=== PATIENT | male | born 1995 | race Caucasian/White ===

== ENCOUNTER 2019-03-06 06:47 | Emergency (ER) | payer OTHER ==
[~2019-03-06] VITALS: Ht 167.6 cm; Wt 59.0 kg
--- OUTSIDE RECORDS SUMMARY | ~2019-03-06 | XMS | Encounter Summary ---
Demographics + + + | Address | [address] | | | [place] [address] | + + + | Home Phone | | + + + | Preferred Language | Unknown | + + + | Marital Status | Single | + + + | Christian Affiliation | CHR | + + + | Race | White | + + + | Ethnic Group | Not or | + + + Author + + + | Author | [facility] | + + + | Organization | [facility] | + + + | Address | Unknown | + + + | Phone | Unavailable | + + + Support + + + + + | Name | Relationship | Address | Phone | + + + + + | Gilbert Falcon | ANGELES | [address] | | | | | [place] | | | | | [address] | | + + + + + | Tommy Falcon | ECON | [address] | | | | | [place] | | | | | [address] | | + + + + + Care Team Providers + +------+ + | Care Sales Floor Team Leader Name | Role | Phone | + +------+ + | Jarret Griffith DO | PCP | | + +------+ + Encounter Details +--------+---------+ + + + | Date | Type | Department | Care Team | Description | +--------+---------+ + + + | 02/18/ | Office | [facility] | Bryan Link MD [address] | Acquired absence of | | 2014 | Visit | [place] | [address] | organ, eye (Primary | | | | Oculoplastics at | [place], [place] | Dx) | | | | [facility] | [address] | | | | | [address] | [phone] | | | | | Mailcode: [facility] | | | | | | [place], [place] | | | | | | [address] | | | | | | [phone] | | | +--------+---------+ + + + Social History + +-------+ +--------+------+ | Tobacco Use | Types | Packs/Day | Years | Date | | | | | Used | | + +-------+ +--------+------+ | Never Smoker | | | | | + +-------+ +--------+------+ + + +---------+ + | Alcohol Use | Drinks/Week | oz/Week | Comments | + + +---------+ + | No | | | | + + +---------+ + + + + | Sex Assigned at | Date Recorded | | | | + + + | Not on file | | + + + + + + + | Job Start Date | Occupation | Industry | + + + + | Not on file | Not on file | Not on file | + + + + + + + + | Travel History | Travel Start | Travel End | + + + + + + | No recent travel history available. | + + documented as of this encounter Progress Notes Bryan Link MD - 02/18/2015 9:37 AM PDTFormatting of this note might be different from the o riginal. Karlo Falcon is a 19 y.o. male Operation Performed: 02/17/15 1. 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 2. Placement of pediatric epidural retrobulbar catheter, left side. Only took a pain pill this AM. No nausea. Patch dry. Administered 3 ml 0.5% marcaine with relief of residual pain. Patch removed. 1+ ecchymosis, minimal edema. 1. Acquired absence of organ, eye Imp: 1. Doing well s/p left enucleation. Plan: 1. Reviewed PO instructions. 2. Follow up 2 weeks or PRN. Bryan Link MD, FACS Professor Ophthalmic Facial Plastic Surgery Departments of Ophthalmology and Otolaryngology & Head/Neck Surgery FAX: documented in this encounter Plan of Treatment Not on filedocumented as of this encounter Visit Diagnoses + + | Diagnosis | + + | Acquired absence of organ, eye - Primary | + + documented in this encounter"
--- OUTSIDE RECORDS SUMMARY | ~2019-03-06 | XMS | Encounter Summary ---
Demographics + + + | Address | [address] | | | [place] [address] | + + + | Home Phone | | + + + | Preferred Language | Unknown | + + + | Marital Status | Single | + + + | Latter-Day Affiliation | CHR | + + + | Race | White | + + + | Ethnic Group | Not or | + + + Author + + + | Author | [facility] | + + + | Organization | [facility] | + + + | Address | Unknown | + + + | Phone | Unavailable | + + + Support + + + + + | Name | Relationship | Address | Phone | + + + + + | Gilbert Falcon | ANGELES | [address] | | | | | [place] | | | | | [address] | | + + + + + | Tommy Falcon | ECON | [address] | | | | | [place] | | | | | [address] | | + + + + + Care Team Providers + +------+ + | Care Iron Worker Apprentice Name | Role | Phone | + +------+ + PCP | Unavailable | + +------+ + Encounter Details +--------+ + + + + | Date | Type | Department | Care Team | Description | +--------+ + + + + | 05/30/ | Office | [facility] | Note, Outpatient | Progress Note | | 2000 | Visit-Trans | MEDICINE | Clinic | | | | cribed | | | | +--------+ + + + + Social History + +-------+ +--------+------+ | Tobacco Use | Types | Packs/Day | Years | Date | | | | | Used | | + +-------+ +--------+------+ | Never Assessed | | | | | + +-------+ +--------+------+ + + + | Sex Assigned at [...] documented as of this encounter Progress Notes Interface, Men'S Golf Coach In - 03/25/2006 5:12 AM PSTCLINIC DATE: 05/30/2000 [facility]STRO[facility]OLOG[facility] CLINIC Today, I received a phone call from Dr. Chuck Gaitan who updated me on the patient. His parents have just moved to [place], [place], and will be staying there for several years as the patient's father goes to school. The patient's mother reports that since I stopped the omeprazole in November 1999, he has been doing very well up until very reasonably when he began having vomiting again. She asked Dr. Gaitan to contact me to determine if omeprazole would be lewis to start again. I agreed. His weight is 11.7 kg which is increased almost 1.5 kg since November 1999. The family's new address is [address] [place] [address], [address], [place] [address]. I wrote a prescription for omeprazole 10 mg twice a day to be given through the gastrostomy tube for 1 month with several refills. Mele Milton M.D. Pediatric Gastroenterology / [id number] / [id number] / [id number] / [id number] signed by Interface, Men'S Golf Coach In at 03/25/2006 5:12 AM PSTdocume nted in this encounter Plan of Treatment Not on filedocumented as of this encounter Visit Diagnoses Not on filedocumented in this encounter"
--- OUTSIDE RECORDS SUMMARY | ~2019-03-06 | XMS | Encounter Summary ---
Demographics + + + | Address | [address] | | | [place] [address] | + + + | Home Phone | | + + + | Preferred Language | Unknown | + + + | Marital Status | Single | + + + | Islam Affiliation | CHR | + + + | Race | White | + + + | Ethnic Group | Not or | + + + Author + + + | Author | [facility] | + + + | Organization | [facility] | + + + | Address | Unknown | + + + | Phone | Unavailable | + + + Support + + + + + | Name | Relationship | Address | Phone | + + + + + | Gilbert Falcon | [address]ELES | [address] | | | | | [place] | | | | | [address] | | + + + + + | Tommy Falcon | ECON | [address] | | | | | [place] | | | | | [address] | | + + + + + Care Team Providers + +------+ + | Care Grooming Salon Manager Name | Role | Phone | + +------+ + | Jarret Griffith DO | PCP | | + +------+ + Reason for Visit AUTH/CERT +--------+--------+ + + + + | Status | Reason | Specialty | Diagnoses / | Referred By | Referred To | | | | | Procedures | Contact | Contact | +--------+--------+ + + + + | | | | | | | +--------+--------+ + + + + Encounter Details +--------+ + + + + | Date | Type | Department | Care Team | Description | +--------+ + + + + | 02/17/ | Hospital | [facility] | Bryan Link MD [address] | | | 2014 | Encounter | [address] | | | | [address] | [place], [place] | | | | | [facility] | [address] | | | | | [address] [facility] | [phone] | | | | | [place] [address] | | | | | | [phone] | | | +--------+ + + + [...] + + documented as of this encounter Last Filed Vital Signs + + + + + | Vital Sign | Reading | Time Taken | Comments | + + + + + | Blood Pressure | 124/70 | 02/17/2015 3:34 PM | | | | | PDT | | + + + + + | Pulse | 97 | 02/17/2015 4:00 PM | | | | | PDT | | + + + + + | Temperature | 36.5 C (97.7 F) | 02/17/2015 3:34 PM | | | | | PDT | | + + + + + | Respiratory Rate | 16 | 02/17/2015 4:00 PM | | | | | PDT | | + + + + + | Oxygen Saturation | 99% | 02/17/2015 4:00 PM | | | | | PDT | | + + + + + | Inhaled Oxygen | - | - | | | Concentration | | | | + + + + + | Weight | 55.8 kg (123 lb) | 02/17/2015 12:15 PM | | | | | PDT | | + + + + + | Height | 167.6 cm (5' 5.98") | 02/17/2015 12:15 PM | | | | | PDT | | + + + + + | Body Mass Index | 19.86 | 02/17/2015 12:15 PM | | | | | PDT | | + + + + + documented in this encounter Discharge Instructions Thomas Thomas Chi, RN - 02/17/2015Home Care after Orbital Surgery Do not drive, drink alcoholic beverages, sign legal documents or make major decisions vicente degroot the next 24 hours. Call your doctor if you notice any unusual symptoms. Remember: You are under the influence of medications. You may resume your normal diet and medications. Icing ? Use ice packs intermittently (10 min. on and 10 min. off) as much as possible for the nex t 72 hours when awake Dressing ? Eye Dressing is to be changed only by your doctor. Do not remove it. ? You may remove your eye dressing in day(s) Eye medication ? Insert eye ointment in eye as ordered by your doctor twice a day ? Apply ointment to suture line ____ twice a day as ordered by your Doctor Avoid the following ? Rubbing your eye(s) ? Do not blow your nose. ? Lifting or straining. Do not lift anything over 20 pounds ? Swimming ? Eye makeup or lotions ? Sports or heavy exercise (until your Doctor says you are ready) ? Dust, dirt and sand into the operated area ? Bending below the waist (keep your head above your heart level) Other things to remember ? If patched, keep your dressing dry ? Sleep on 2-3 pillows for the next week to minimize swelling. Do not sleep flat. ? Do not use any aspirin, aspirin-containing medications or non-steroidal anti-inflammatory products (Ibuprofen, Aleve, Naprosyn, etc). Please check with your Eye Doctor before resumi ng any blood thinners Call your doctor if ? Increasing pain that the pain medication does not treat ? Extreme swelling that is hard to the touch. Soft swelling is normal. ? Inability to move the eye under the patch ? Fever above 101 degrees How to reach your doctor ? Monday through Monday, 8am-5pm, call ? All other hours including after hours, weekends and holidays, call and ask the electric shovel operator to page the Eye Doctor gambling monitor. ? Return appointment date: ? Time: documented in this encounter Medications at Time of Discharge + + + +---------+ + + | Medication | Sig | Dispensed | Refills | Start | End Date | | | | | | Date | | + + + +---------+ + + | | Instill 1 drop into | | 0 | | | | Brimonidine-Timolol | the left eye two | | | | | | (COMBIGAN) 0.2-0.5 % | times daily. | | | | | | ophthalmic drops | | | | | | + + + +---------+ + + | DEXTRAN | Instill in eye as | | 0 | | | | 70/HYPROMELLOSE | needed. | | | | | | (ARTIFICIAL TEARS, | | | | | | | PF, OPHT) | | | | | | + + + +---------+ + + | dorzolamide 2 % | Instill 1 drop into | | 0 | | | | ophthalmic drops | the left eye two | | | | | | | times daily. | | | | | + + + +---------+ + + | MISCELLANEOUS | Please fit for | 1 each | 0 | 11/28/19 | | | MEDICAL SUPPLY (RX | custom ocular | | | 14 | | | OCULAR PROSTHESIS) | prosthetic | | | | | | | covershell. May use | | | | | | | topical anesthesia. | | | | | + + + +---------+ + + | prednisoLONE | Instill 1 drop into | | 0 | | | | acetate 1 % | the left eye four | | | | | | ophthalmic | times daily. | | | | | | drops,suspension | | | | | | + + + +---------+ + + | travoprost | Instill 1 drop into | | 0 | | | | (TRAVATAN Z) 0.004 % | the left eye once | | | | | | ophthalmic drops | daily in the | | | | | | | evening. | | | | | + + + +---------+ + + documented as of this encounter Plan of Treatment Not on filedocumented as of this encounter Procedures + +--------+ + + + | Procedure Name | Priori | Date/Time | Associated Diagnosis | Comments | | | ty | | | | + +--------+ + + + | PROCEDURE NOTE | Routin | 06/25/2015 | | Results for this | | | e | 12:15 PM | | procedure are in the | | | | PST | | results section. | + +--------+ + + + | PROCEDURE NOTE | Routin | 06/25/2015 | | Results for this | | | e | 12:09 PM | | procedure are in the | | | | PST | | results section. | + +--------+ + + + | OPERATION RECORD | | 02/17/2015 | | Results for this | | | | 3:04 PM | | procedure are in the | | | | PDT | | results section. | + +--------+ + + + | ENUCLEATION WITH | Electi | 02/17/2015 | Blind hypotensive | | | MEDPOR IMPLANT | ve | 1:32 PM | eye, left | | | | Surgic | PDT | | | | | al | | | | + +--------+ + + + | GLOBES(OP) | Routin | 02/17/2015 | | Results for this | | | e | | | procedure are in the | | | | | | results section. 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 2.Placement of pediatric epidural retrobulbar catheter, left side.Anesthesia: | | General.Complications: None.Estimated Blood Loss: Minimal.Specimens Sent: Enucleated | | left eye sent to Pathology in fixative.Indications: The patient is a 19-year-old male | | with a history of retinal detachment, glaucoma and eventually a left blind painful eye | | that could not tolerate a prosthetic cover shell. Therefore, he presents for | | enucleation of the left eye for pain control.Procedure: The patient was counseled as to | | the risks and benefits of surgery, and a consent was obtained. The patient was brought | | into the operating room and placed under general anesthesia. Local anesthesia was | | infiltrated into the operative sites, and as a retrobulbar block. The patient was given | | antibiotics and steroids at the start of the case. The patient was prepped and draped | | in the usual fashion for surgery. A lid speculum was used to retract the eyelids, and | | Moe scissors was used to create a 360-degree limbal peritomy. Curved hemostats | | were used to clear the intermuscular quadrants. The rectus muscles were isolated with | | muscle hooks and secured with double-armed 5-0 Vicryl sutures with locking bites prior | | to transecting them off the globe. The oblique muscles were identified and then | | transected. Next, an enucleation snare was used to cut the optic nerve, and the globe | | was removed and sent to Pathology in fixative. Local anesthesia was infiltrated into | | the orbit, along with antibiotic solution. A 20 mm Medpor SST-EZ implant was infiltrated | | with antibiotic solution and then placed into the intraconal space with the smooth | | surface facing anteriorly. The extraocular muscles were secured to the implant by | | passing the sutures through the implant suture holes. Tenon's layer was then closed | | using interrupted 5-0 Vicryl sutures with buried knots. The conjunctiva was closed | | using a running 5-0 Vicryl suture. Next, an iris conformer with antibiotic ointment was | | placed behind the eyelids, and then 2 simple 6-0 fast-absorbing gut suture | | tarsorrhaphies were placed. An 18-gauge needle was then passed into the intraconal space | | through the lower lid and a Pediatric epidural catheter was passed down the Angiocath, | | and the Angiocath was removed. The pain catheter was secured using an OpSite and then 3 | | mL of 0.5% plain Marcaine were administered for postoperative pain control. An | | antibiotic pressure patch was placed over the left eye socket. The patient was awakened | | from anesthesia and sent to same-day surgery in good condition.RAFAEL Blanchard/DAJAUNLDD: | | 02/17/2015 14:19:02DT: 02/17/2015 14:37:18Job #: [id number]: Monae Fitzgerald Sr, | | Jen Griffith DO | |OpSite and then 3 mL of 0.5% plain Marcaine were administered for postoperative pain contro l. An antibiotic pressure patch was placed over the left eye socket. The patient was awake jackson from anesthesia and sent to same-day surgery in good condition. | | | | | | | |Bryan Link MD | |GIOVANY/DAJUANL | | | | | | /[id number] | | | |CC: Monae Fitzgerald Sr, MD | | | |Jarret Griffith DO | + + GLOBES(OP) (02/17/2015) + + + + + + | Component | Value | Ref Range | Performed | Pathologist | | | | | At | Signature | + + + + + + | GLOBES | SOURCE OF SPECIMEN:A | | [facility] | | | | Globe, Left FINAL | | [facility] | | | | PATHOLOGIC | | [facility] | | | | DIAGNOSIS:Globe: | | | | | | SurgicalCornea: | | | | | | Retrocorneal | | | | | | membraneIris: | | | | | | AtrophicAngle: | | | | | | ClosedCiliary | | | | | | body: AtrophicLens: | | | | | | | | | | | | AphakicRetina: | | | | | | Detachment, total | | | | | | | | | | | | AtrophyChoroid: | | | | | | Detachment, | | | | | | serousOptic Nerve: | | | | | | Atrophy Clinical | | | | | | History: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 It was a left | | | | | | globe measuring 22 (H)x | | | | | | 21 (V) x 22 (AP) mm. The | | | | | | cornea was clear with a | | | | | | diameter of 11 (H) x | | | | | | 10(V) mm. The globe | | | | | | transilluminated with a | | | | | | widely dilated iris | | | | | | noted | | | | | | ontransillumination. The | | | | | | globe appeared small | | | | | | but was well formed. | | | | | | It wasopened | | | | | | horizontally in a plane | | | | | | parallel to the center | | | | | | of the optic nerveand | | | | | | center of the pupil. | | | | | | Upon opening the globe, | | | | | | the lens was noted to | | | | | | beabsent and in its | | | | | | place was a membrane, | | | | | | with a thin white strand | | | | | | suspendedfrom the | | | | | | posterior pole to the | | | | | | lens. The vitreous was | | | | | | gelatinous and clear.The | | | | | | retina and choroid were | | | | | | present with a possible | | | | | | closed funnel | | | | | | retinaldetachment. The | | | | | | optic nerve was | | | | | | unremarkable. | | | | | | MICROSCOPIC | | | | | | DESCRIPTION:Microscopic | | | | | | evaluation reveals the | | | | | | corneal epithelium is | | | | | | intact. Garza'slayer | | | | | | has multiple defects and | | | | | | portions where it is | | | | | | absent. There are | | | | | | areasof pannus present | | | | | | as well as an epithelial | | | | | | bulla. The stroma is | | | | | | scarred.Descemet's | | | | | | membrane is present and | | | | | | a Descemet's membrane | | | | | | like structureextends | | | | | | over the surface of the | | | | | | iris and pars plicata. | | | | | | There are noendothelial | | | | | | nuclei per high power | | | | | | field. Adherent to | | | | | | Descemet's membrane wesley | | | | | | fine fibrovascular | | | | | | membrane in the anterior | | | | | | chamber. The angle is | | | | | | closed.The iris is | | | | | | markedly atrophic. The | | | | | | ciliary body is | | | | | | atrophied and isadherent | | | | | | to the overlying iris. | | | | | | The retina is completely | | | | | | detached | | | | | | andanteriorly consists | | | | | | of a cohesive, | | | | | | self-adherent mass | | | | | | containing an area | | | | | | offocal calcification, | | | | | | scattered pigmented | | | | | | cells and retinal cells. | | | | | | Theretinal pigment | | | | | | epithelium is intact and | | | | | | there are scattered | | | | | | dome shapedgiant drusen | | | | | | present. There are focal | | | | | | areas of RPE | | | | | | hyperplasia | | | | | | present.Posteriorly, the | | | | | | choroid is partially | | | | | | detached from the sclera | | | | | | and withinthe space is | | | | | | a proteinaceous fluid. | | | | | | The optic nerve is | | | | | | markedly atrophic. | | | | | | My electronic signature | | | | | | indicates that I have | | | | | | personally reviewed | | | | | | alldiagnostic slides, | | | | | | the gross and/or | | | | | | microscopic portion of | | | | | | thisreport and | | | | | | formulated the final | | | | | | diagnosis. | | | | | | Rendering Diagnostician: | | | | | | Daryl Rodriguez | | | | | | MDDirector [facility] | | | | | | InstituteElectronically | | | | | | Signed 03/03/2015 | | | | | | 3:59PM | | | | + + + + + + + + | Specimen | + + | | + + + + + | Narrative | Performed At | + + + | | | + + + + + + + + | Performing | Address | City/State/Zipcode | Phone Number | | Organization | | | | + + + + + | [facility] | [address] | [place] [address] | | | [facility]STITUTE | [place] | | | + + + + + documented in this encounter Visit Diagnoses Not on filedocumented in this encounter Administered Medications + + + +------+------+------+ | Medication Order | MAR | Action | Dose | Rate | Site | | | Action | Date | | | | + + + +------+------+------+ | lactated ringers IV 10 mL/hr, | given by | 02/18/20 | | | | | intravenous, CONTINUOUS, Starting | | 15 1:50 | | | | | 02/17/15 at 1300, Until Tue | anesthes | PM PDT | | | | | 02/17/15 at 2214 | iology | | | | | + + + +------+------+------+ + + + + +---+ | given by anesthesiology | 02/18/20 | | | | | | 15 1:42 | | | | | | PM PDT | | | | + + + + +---+ | New Bag | 02/18/20 | 10 mL/hr | 10 mL/hr | | | | 15 12:43 | | | | | | PM PDT | | | | + + + + +---+ +---+---+ | | | +---+---+ documented in this encounter
--- OUTSIDE RECORDS SUMMARY | ~2019-03-06 | XMS | Encounter Summary ---
Demographics + + + | Address | [address] | | | [place] [address] | + + + | Home Phone | | + + + | Preferred Language | Unknown | + + + | Marital Status | Single | + + + | Gnosticist Affiliation | CHR | + + + | Race | White | + + + | Ethnic Group | Not or | + + + Author + + + | Author | [facility] | + + + | Organization | [facility] | + + + | Address | Unknown | + + + | Phone | Unavailable | + + + Support + + + + + | Name | Relationship | Address | Phone | + + + + + | Gilbert Falcon | ANGELES | [address] | | | | | [place] | | | | | [address] | | + + + + + | Tommy Falcon | ECON | [address] | | | | | [place] | | | | | [address] | | + + + + + Care Team Providers + +------+ + | Care Tree And Shrub Worker Name | Role | Phone | + +------+ + PCP | Unavailable | + +------+ + Encounter Details +--------+ + + + + | Date | Type | Department | Care Team | Description | +--------+ + + + + | 09/19/ | Office | [facility] | Note, Outpatient | Progress Note | | 1999 | Visit-Trans | MEDICINE | Clinic | [...] as of this encounter Progress Notes Interface, Instructor Dramatic Arts In - 04/11/2006 1:03 AM PSTCLINIC DATE: 09/20/1999 PEDIATRIC GASTROENTEROLOGY CLINIC SUBJECTIVE: Karlo is a 70-idcm[age]-ohy male toddler, 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 At his last visit, one year ago in August 1998, Karlo was doing very well and was off his omeprazole. Approximally one to two months ago, he developed a chronic cough that seemed to get worse at night. He also had more irritation when he lays down at night. His mother notes increased burping, but no vomiting. He has had no weight loss, although his mother notes that he is somewhat more sluggish about eating, although when he "feels like," the patient eats a good amount. He chokes occasionally when drinking fluids from a regular cup, but not from the sippee cup and eats solid food well without dysphagia or choking. One month ago, his mother started Karlo on omeprazole 10 mg twice a day and his coughing seems to have improved. However, the burping continues and coughing during the day still persists. One month ago, he was also diagnosed with a right-sided pneumonia (further details unknown). He has had no fevers, no rashes, and no joint pains. He is making remarkable progress considering his prematurity. He walks well without help and says many words. His mother has relocated to a half-way last . His father is in the waiting room, but apparently a restraining order is being generated to keep the father way from the children. Karlo's mother states that her main fear is that he is trying to take the children away. PHYSICAL EXAMINATION: VITAL SIGNS: Weight is 10 kg which is less than the 5th percentile for age. Height is 78 cm which is also less than 5th percentile for age. Weight for height is above the 30th percentile (increased from 25th percentile one year ago). GENERAL: A small but well-developed and a proportionate little boy in no apparent distress. Alert and oriented x 4, very active, and playful. HEENT: Atraumatic and normocephalic. Sclerae clear. Extraocular movements are intact. Oropharynx is clear without lesions. Tympanic membranes are clear bilaterally. NECK: Supple without lymphadenopathy. LUNGS: Clear to auscultation. HEART: Regular rate and rhythm without murmur. ABDOMEN: Soft and nontender. No hepatosplenomegaly or other masses palpated. EXTREMITIES: No clubbing, cyanosis, or edema. FAMILY HISTORY: No family history of heartburn or gastroesophageal reflux disease. ASSESSMENT 1. A 9-wzb[age]ghi male toddler ex-24-week premature with clinical gastroesophageal reflux disease that seems to be responding to omeprazole as it did over a year ago. 2. He is a healthy-appearing little boy. RECOMMENDATIONS 1. Continue omeprazole at 10 mg twice a day for three more months at which time I will see Karlo back again. 2. My nurse contacted the security to help escort Karlo's mother and her children (Karlo also has a brother accompanying him on this visit) back to their transportation. Apparently, the restraining order will be in place by the end of today. I want to thank Dr. Gaitan for referring Karlo to me and to feel free to contact me if any questions or concerns. Mele Milton M.D. Pediatric Gastroenterology / HS [id number] / [id number] / [id number] / [id number] cc: Chuck Gaitan M.D. [address] [address] [id number] signed by Interface, Instructor Dramatic Arts In at 04/11/2006 1:03 AM PSTdocume nted in this encounter Plan of Treatment Not on filedocumented as of this encounter Visit Diagnoses Not on filedocumented in this encounter
--- OUTSIDE RECORDS SUMMARY | ~2019-03-06 | XMS | Encounter Summary ---
Demographics + + + | Address | [address] | | | [place] [address] | + + + | Home Phone | | + + + | Preferred Language | Unknown | + + + | Marital Status | Single | + + + | Advent Affiliation | CHR | + + + | Race | White | + + + | Ethnic Group | Not or | + + + Author + + + | Author | [facility] | + + + | Organization | [facility] | + + + | Address | Unknown | + + + | Phone | Unavailable | + + + Support + + + + + | Name | Relationship | Address | Phone | + + + + + | Gilbert Falcon | ANGELES | [address] | | | | | [place] | | | | | [address] | | + + + + + | Tommy Falcon | ECON | [address] | | | | | [place] | | | | | [address] | | + + + + + Care Team Providers + +------+ + | Care Profiling Machine Set Up Operator Tool Name | Role | Phone | + +------+ + | Jarret Griffith DO | PCP | | + +------+ + Reason for Visit + + + | Reason | Comments | + + + | New patient | pt referred to discuss possible enucleation/prosthesis for | | consultation | cosmesis-h/o glaucoma OS w/high IOP & NLP vision. s/p vitrectomy | | | w/Dr Turcios 2000. | + + + Encounter Details +--------+---------+ + + + | Date | Type | Department | Care Team | Description | +--------+---------+ + + + | 11/27/ | Office | [facility] | Bryan Link MD [address] | Blind left eye | | 2013 | Visit | [place] | [address] | (Primary Dx) | | | | Oculoplastics at | [place], [place] | | | | | [facility] | [address] | | | | | [address] | [phone] | | | | | Mailcode: [facility] | | | | | | [place], [place] | | | | | | [address] | | | | | | [phone] | | | +--------+---------+ + + + [...] documented as of this encounter Progress Notes Елена Fisher - 01/12/2015 4:05 PM PDT20 mm Medpor implant Елена Chery - 01/12/2015 3:41 PM PDTConsent on admit, mailed perioperative literature to pt Scheduled Enucleation left eye w/implant-GA @ [facility] 02/17/15 Елена Chery - 11/27/2013 9:12 AM PDTFormatting of t his note might be different from the original. Karlo Falcon is a 18 y.o. male who presents to clinic today. Chief Complaint Patient presents with New patient consultation pt referred to discuss possible enucleation/prosthesis for cosmesis-h/o ROP, glaucoma OS w/high IOP & NLP vision. s/p vitrectomy w/Dr Turcios 2000. No eye pain but tearing & difficul ty keeping it open recently. Patient does not report pain but mom states he has a very high tolerance. She is also concerned regarding vermin exterminator prognosis and need for enucleation for future potential pain control. Pain: No pain (0 of 0-10) Visual Acuity: VAsc VAcc VAph RE 20/20- LE NLP RE LE 0 0 0 0 0 0 0 0 Pupil Exam: RRL OD La mm 0 mm Slit Lamp Exam: RE LE Lids: normal Conjunctiva: clear Cornea: clear AC: deep and quiet Iris: normal Lens: clear Lids: normal, mildly ptotic due to smaller eye Conjunctiva: injected Cornea: clear; no irritation to touch with cotton wisps AC: deeper Iris: scarred Lens: white plaque Intraocular Pressure: unable Left globe does not seem tender to palpation. Photo taken slightly smaller left eye and secondary mechanical ptosis I, ЕЛЕНА FISHER, performed, reviewed or revised the above history, medications, allergi es, as well as performed elements noted in the Base Ophthalmology Exam, including visual acu ity, pupils, EOMs, CVF and IOP. I have reviewed and edited history and tech documentation, and performed all elements to ab ove examination documentation. 1. Blind left eye Imp: 1. 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 Some injection and possible early potential discomfo rt. Plan: 1. Discussed options: no intervention; prosthetic covershell left eye; enucleation with imp lant and prosthesis. They will think about options and the indications for each option. 2. Referral to ocularists for potential covershell. Bryan Link MD, FACS Professor Ophthalmic Facial [...] | + +--------+ + + + | [place] EXTERNAL PHOTOS | Routin | 11/27/2013 | Blind left eye | | | | e | 10:57 AM | | | | | | PDT | | | + +--------+ + + + documented in this encounter Visit Diagnoses + + | Diagnosis | + + | Blind left eye - Primary Profound impairment, one eye, Impairment level not further | | specified | + + documented in this encounter"
--- OUTSIDE RECORDS SUMMARY | ~2019-03-06 | XMS | Encounter Summary ---
Demographics + + + | Address | [address] | | | [place] [address] | + + + | Home Phone | | + + + | Preferred Language | Unknown | + + + | Marital Status | Single | + + + | Restoration Affiliation | CHR | + + + | Race | White | + + + | Ethnic Group | Not or | + + + Author + + + | Author | [facility] | + + + | Organization | [facility] | + + + | Address | Unknown | + + + | Phone | Unavailable | + + + Support + + + + + | Name | Relationship | Address | Phone | + + + + + | Gilbert Falcon | ANGELES | [address] | | | | | [place] | | | | | [address] | | + + + + + | Tommy Falcon | ECON | [address] | | | | | [place] | | | | | [address] | | + + + + + Care Team Providers + +------+ + | Care Nascar Racer Name | Role | Phone | + +------+ + | Jarret Griffith DO | PCP | | + +------+ + Reason for Visit + + + | Reason | Comments | + + + | Pre-Admission | | + + + Encounter Details +--------+ + + + + | Date | Type | Department | Care Team | Description | +--------+ + + + + | 01/14/ | PreAdmit | [facility] | Bryan Link MD 3[address] | Pre-Admission | | 2015 | Orders | [place] | [address] | | | | | Oculoplastics at | [place], [place] | | | | | [facility] | [address] | | | | | [address] | [phone] | | | | | Mailcode: [facility] | | | | | | [place], [place] | | | | | | [address] | | | | | | [phone] | | | +--------+ + + + [...]
--- OUTSIDE RECORDS SUMMARY | ~2019-03-06 | XMS | Clinical Summary ---
Demographics + + + | Address | [address] | | | [place] [address] | + + + | Home Phone | | + + + | Preferred Language | Unknown | + + + | Marital Status | Single | + + + | Hinduism Affiliation | CHR | + + + | Race | White | + + + | Ethnic Group | Not or | + + + Author + + + | Author | [facility] | + + + | Organization | [facility] | + + + | Address | Unknown | + + + | Phone | Unavailable | + + + Support + + + + + | Name | Relationship | Address | Phone | + + + + + | Gilbert Falcon | ECON | [address] | | | | | [place] | | | | | [address] | | + + + + + | Sandy Falcon | ECON | [address] | | | | | [place], [place] | | | | | [address] | | + + + + + Care Team Providers + +------+ + | Care Oral And Maxillofacial Pathologist Name | Role | Phone | + +------+ + | Jarret Griffith DO | PCP | | + +------+ + Source Comments TONG is fully live on both [facility] Ambulatory and [facility] InPatient.[facility] Allergies No Known Allergies Medications + + + +---------+------+------+-------+ | Medication | Sig | Dispensed | Refills | Star | End | Statu | | | | | | t | Date | s | | | | | | Date | | | + + + +---------+------+------+-------+ | travoprost | Instill 1 drop into | | 0 | | | Activ | | (TRAVATAN Z) 0.004 % | the left eye once | | | | | e | | ophthalmic drops | daily in the | | | | | | | | evening. | | | | | | + + + +---------+------+------+-------+ | dorzolamide 2 % | Instill 1 drop into | | 0 | | | Activ | | ophthalmic drops | the left eye two | | | | | e | | | times daily. | | | | | | + + + +---------+------+------+-------+ | | Instill 1 drop into | | 0 | | | Activ | | Brimonidine-Timolol | the left eye two | | | | | e | | (COMBIGAN) 0.2-0.5 % | times daily. | | | | | | | ophthalmic drops | | | | | | | + + + +---------+------+------+-------+ | prednisoLONE | Instill 1 drop into | | 0 | | | Activ | | acetate 1 % | the left eye four | | | | | e | | ophthalmic | times daily. | | | | | | | drops,suspension | | | | | | | + + + +---------+------+------+-------+ | DEXTRAN | Instill in eye as | | 0 | | | Activ | | 70/HYPROMELLOSE | needed. | | | | | e | | (ARTIFICIAL TEARS, | | | | | | | | PF, OPHT) | | | | | | | + + + +---------+------+------+-------+ | MISCELLANEOUS | Please fit for | 1 each | 0 | 07/0 | | Activ | | MEDICAL SUPPLY (RX | custom ocular | | | 9/20 | | e | | OCULAR PROSTHESIS) | prosthetic | | | 14 | | | | | covershell. May use | | | | | | | | topical anesthesia. | | | | | | + + + +---------+------+------+-------+ Active Problems + + + | Problem | Noted Date | + + + | Acquired absence of organ, eye | 02/18/2015 | + + + Family History + + +------+ + | Medical History | Relation | Name | Comments | + + +------+ + | High blood pressure | Mother | | | + + +------+ + | Diabetes | | | gm | + + +------+ + | Other | | | kidney-gm | + + +------+ + + +------+--------+ + | Relation | Name | Status | Comments | + +------+--------+ + | Mother | | | | + +------+--------+ + Social History + +-------+ +--------+------+ | [...] recent travel history available. | + + Last Filed Vital Signs + + + [...] | | + + + + + Plan of Treatment + + + + + | Health Maintenance | Due Date | Last Done | Comments | + + + + + | Influenza (Flu) | | | | | vaccination (#1) | 9 | | | + + + + + | Pneumococcal | Aged Out | | No longer eligible | | vaccination | | | based on patient's | | | | | age to complete this | | | | | topic | + + + + + Implants + +------+------+ +--------+--------+--------+ | Implanted | Type | Area | Manufacture | Device | Shelf | Model | | | | | r | | Expira | / | | | | | | Identi | tion | Serial | | | | | | fier | Date | / Lot | + +------+------+ +--------+--------+--------+ | Implant Medpor Sst Ez Smooth | | | JAC | | 09/18/ | [id number] | | 20mm - [id number]: | | | | | 5 | / | | Qty: 1 on 02/17/2015 by Nikolay, | | | | | | /[id number] | | MD Bryan at [facility] | | | | | | 057 | | REV LOC | | | | | | | + +------+------+ +--------+--------+--------+ Results Not on filefrom Last 3 Months Insurance + +--------+ +--------+ + +------+ | Payer | Benefi | Subscriber | Effect | Phone | Address | Type | | | t Plan | ID | riky | | | | | | / | | Dates | | | | | | Group | | | | | | + +--------+ +--------+ + +------+ | [facility] | PHP | [phone] | 08/21/19 | [phone] | [address] | PPO | | | [address] | | 11-Pre | 0 | [address] | | [address] | | sent | | [place], | | | | [place] | | | | [place] [address] | | + +--------+ +--------+ + +------+ + +--------+ +--------+ + + | Guarantor Name | Accoun | Relation to | Date | Phone | Billing Address | | | t Type | Patient | of | | | | | | | | | | + +--------+ +--------+ + + | SANDY FALCON | Person | Father | [birth year] | [address] | | | al/Erick | | 1974 | [phone] | [place] [address] | | | peggy | | | 7 (Home) | | + +--------+ +--------+ + +
--- OUTSIDE RECORDS SUMMARY | ~2019-03-06 | XMS | Encounter Summary ---
Demographics + + + | Address | [address] | | | [place] [address] | + + + | Home Phone | | + + + | Preferred Language | Unknown | + + + | Marital Status | Single | + + + | Druze Affiliation | CHR | + + + | Race | White | + + + | Ethnic Group | Not or | + + + Author + + + | Author | [facility] | + + + | Organization | [facility] | + + + | Address | Unknown | + + + | Phone | Unavailable | + + + Support + + + + + | Name | Relationship | Address | Phone | + + + + + | Gilbert Falcon | ANGELES | [address] | | | | | [place] | | | | | [address] | | + + + + + | Tommy Falcon | ECON | [address] | | | | | [place] | | | | | [address] | | + + + + + Care Team Providers + +------+ + | Care Senior Nuclear Medicine Technologist Name | Role | Phone | + +------+ + | Jarret Griffith DO | PCP | | + +------+ + Encounter Details +--------+ + + + + | Date | Type | Department | Care Team | Description | +--------+ + + + + | 02/17/ | Pharmacy | [facility] | | | | 2014 | Visit | [address] | | | | | | [address] | | | | | | [place], [place] | | | | | | [address] | | | | | | [phone] | | | +--------+ + + + [...]
--- OUTSIDE RECORDS SUMMARY | ~2019-03-06 | XMS | Encounter Summary ---
Demographics + + + | Address | [address] | | | [place] [address] | + + + | Home Phone [...] Author + + + | Author | [facility] | + + + | Organization | [facility] | + + + | Address | Unknown | + + + | Phone | Unavailable | + + + Support + + + + + | Name | Relationship | Address | Phone | + + + + + | Gilbert Falcon | ANGELES | [address] | | | | | [place] | | | | | [address] | | + + + + + | Tommy Falcon | ECON | [address] | | | | | [place] | | | | | [address] | | + + + + + Care Team Providers + +------+ + | Care Milk Runner Name | Role | Phone | + +------+ + PCP | Unavailable | + +------+ + Encounter Details +--------+ + + + + | Date | Type | Department | Care Team | Description | +--------+ + + + + | 04/27/ | Results | Pediatric | Day Tucker MD | | | 1997 | Only | Gastroenterology at | | | | | | [facility] | | | | | | [facility] | | | | | | [address] | | | | | | Michelle Soriano Mailcode: | | | | | | [facility] | | | | | | [place], [place] | | | | | | [address] | | | | | | [phone] | | | +--------+ + + + [...] | + +--------+ + + + | UPPER GI WITH FOOD | Routin | 05/12/1998 | | Results for this | | | e | 3:48 PM | | procedure are in the | | | | PST | | results section. | + +--------+ + + + | CHEST, 1 VIEW, | Priori | 04/27/1998 | | Results for this | | PORTABLE | ty | 1:11 PM | | procedure are in the | | | | PST | | results section. | + +--------+ + + + documented in this encounter Results UPPER GI WITH FOOD (05/12/1998 3:48 PM PST) + + + + + + | Component | Value | Ref Range | Performed | Pathologist | | | | | At | Signature | + + + + + + | UPPER GI | Radiologist 1: | | | | | WITH FOOD | MARY ANN VIDAL, | | | | | | M.D.UPPER | | | | | | GASTROINTESTINAL SERIES: | | | | | | 05/12/98 at 1548 | | | | | | hours. Dictated | | | | | | 05/12/98 FINDINGS: The | | | | | | examination was done | | | | | | together with the | | | | | | speechpathologist, | | | | | | Daniel Araujo. With a | | | | | | thin liquid consistency, | | | | | | a small amount of | | | | | | laryngealpenetration was | | | | | | seen. A puree | | | | | | consistency was then | | | | | | given and nopenetration | | | | | | or aspiration was seen. | | | | | | Initially the feeding | | | | | | was done [place] semi-erect | | | | | | position in a car seat. | | | | | | The patient was then | | | | | | placed in the horizontal | | | | | | position and a | | | | | | routineupper | | | | | | gastrointestinal series | | | | | | was completed. The | | | | | | esophagus is normalin | | | | | | size with no abnormal | | | | | | extrinsic indentations | | | | | | and no evidence of | | | | | | anystrictures. The | | | | | | gastric emptying was | | | | | | normal. The ligament | | | | | | of Treitzis in normal | | | | | | position to the left of | | | | | | the pedicle of L1, close | | | | | | to thelevel of the | | | | | | pylorus. There was | | | | | | marked G-E reflux which | | | | | | extended to the thoracic | | | | | | inlet andwhich was | | | | | | reproducible. | | | | | | IMPRESSION: 1. Small | | | | | | amount of laryngeal | | | | | | penetration during | | | | | | swallowing a thinliquid | | | | | | consistency. This | | | | | | cleared rapidly and | | | | | | there was no evidence | | | | | | ofaspiration. 2. No | | | | | | evidence for | | | | | | malrotation. 3. Marked | | | | | | G-E reflux which | | | | | | extended to the thoracic | | | | | | inlet was seen onthree | | | | | | separate occasions. | | | | | | END OF IMPRESSION: | | | | + + + + + + + + | Specimen | + + | | + + + +---------+ + + | Performing | Address | City/State/Zipcode | Phone Number | | Organization | | | | + +---------+ + + | [facility] DEPARTMENT OF | | | | | RADIOLOGY | | | | + +---------+ + + CHEST, 1 VIEW, PORTABLE (04/27/1998 1:11 PM PST) + + + + + + | Component | Value | Ref Range | Performed | Pathologist | | | | | At | Signature | + + + + + + | CHEST, 1 | Radiologist 1: | | | | | VIEW, | MARY ANN VIDAL, | | | | | PORTABLE | M.D.-Radiologist 2: | | | | | | PARUL PIZARRO, | | | | | | M.D.LATERAL VIEW CHEST: | | | | | | 04/27/98 at 1311 | | | | | | hours. Dictated | | | | | | 04/27/98 COMPARISON: | | | | | | There are no prior | | | | | | studies available for | | | | | | comparison. FINDINGS: An | | | | | | esophageal pH probe has | | | | | | been placed, the tip of | | | | | | which islocated in the | | | | | | mid-esophagus, at the | | | | | | level of the left main | | | | | | pulmonaryartery and | | | | | | approximately 3.2 cm | | | | | | above the diaphragm. | | | | | | Lungs appearclear, | | | | | | without pleural effusion | | | | | | or pneumothorax. Bowel | | | | | | gas pattern | | | | | | isunremarkable. | | | | | | IMPRESSION: Esophageal | | | | | | pH probe is located in | | | | | | the mid-esophagus, at | | | | | | the level ofthe left | | | | | | main pulmonary artery | | | | | | and approximately 3.2 cm | | | | | | above thediaphragm. | | | | | | END OF IMPRESSION: | | | | + + + + + + + + | Specimen | + + | | + + + +---------+ + + | Performing | Address | City/State/Zipcode | Phone Number | | Organization | | | | + +---------+ + + | [facility] DEPARTMENT OF | | | | | RADIOLOGY | | | | + +---------+ + + documented in this encounter Visit Diagnoses Not on filedocumented in this encounter"
--- OUTSIDE RECORDS SUMMARY | ~2019-03-06 | XMS | Clinical Summary ---
Demographics + + + | Address | [address] | | | [place] [address] | + + + | Home Phone [...] + + | Author | [facility] | + + + | Organization | [facility] | + + + | Address | Unknown | + + + | Phone | Unavailable | + + + Support + + + + + | Name | Relationship | Address | Phone | + + + + + | Gilbert Falcon | ECON | [address] | | | | | [place] | | | | | [address] | | + + + + + | Sandy Falcon | ECON | [address] | | | | | [place], [place] | | | | | [address] | | + + + + + Care Team Providers + +------+ + | Care Envelope Stuffer Name | Role | Phone | + +------+ + | Jarret Griffith DO | PCP | | + +------+ + Source Comments TONG is fully live on both [facility] Ambulatory and [facility] InPatient.[facility] Allergies No Known Allergies Medications + + [...] | | JAC | | 09/18/ | [id number] | | 20mm - [id number]: | | | | | 5 | / | | Qty: 1 on 02/17/2015 by Nikolay, | | | | | | /[id number] | | MD Bryan at [facility] | | | | | [...] | PHP | [phone] | 08/21/19 | [phone] | [address] | PPO | | | [address] | | 11-Pre | [address] | [address] | | | | [address] | | sent | | [place], | | | | [place] | | | | [place] [address] | | + +--------+ +--------+ + +------+ [...] | 1974 | [phone] | [place] [address] | | | peggy | | | 7 (Home) | | + +--------+ +--------+ + +
--- OUTSIDE RECORDS SUMMARY | ~2019-03-06 | XMS | Encounter Summary ---
Demographics + + + | Address | [address] | | | [place] [address] | + + + | Home Phone | | + + + | Preferred Language | Unknown | + + + | Marital Status | Single | + + + | Confucianism Affiliation | CHR | + + + | Race | White | + + + | Ethnic Group | Not or | + + + Author + + + | Author | [facility] | + + + | Organization | [facility] | + + + | Address | Unknown | + + + | Phone | Unavailable | + + + Support + + + + + | Name | Relationship | Address | Phone | + + + + + | Gilbert Falcon | ANGELES | [address] | | | | | [place] | | | | | [address] | | + + + + + | Tommy Falcon | ECON | [address] | | | | | [place] | | | | | [address] | | + + + + + Care Team Providers + +------+ + | Care Ergonomics Engineer Name | Role | Phone | + +------+ + | Jarret Griffith DO | PCP | | + +------+ + Encounter Details +--------+ + + + + | Date | Type | Department | Care Team | Description | +--------+ + + + + | 10/01/ | Telephone | [facility] | Bryan Link MD [address] | | | 2015 | | [place] | [address] | | | | | Oculoplastics at | [place], [place] | | | | | [address] | [address] | | | | | [address] | [phone] | | | | | Mailcode: [facility] | | | | | | [place], [place] | | | | | | [address] | | | | | | [phone] | | | +--------+ + + + [...]
--- OUTSIDE RECORDS SUMMARY | ~2019-03-06 | XMS | Encounter Summary ---
Demographics + + + | Address | [address] | | | [place] [address] | + + + | Home Phone | | + + + | Preferred Language | Unknown | + + + | Marital Status | Single | + + + | Samaritan Affiliation | CHR | + + + [...] [place] | | | | | [address] | | + + + + + | Tommy Falcon | ECON | [address] | | | | | [place] | | | | | [address] | | + + + + + Care Team Providers + +------+ + | Care Coppersmith Apprentice Name | Role | Phone | + +------+ + PCP | Unavailable | + +------+ + Encounter Details +--------+ + + + + | Date | Type | Department | Care Team | Description | +--------+ + + + + | 01/23/ | Office | [facility] | Consult, Cdrc | Progress Note | | 2001 | Visit-Trans | | | | | | cribed | | [...] as of this encounter Progress Notes Interface, Paper Sales Representative In - 01/06/2006 3:05 AM PDTCLINIC DATE: 01/23/2002 CLINIC NAME: [facility] DISCIPLINE: PEDIATRIC ORTHOPEDICS Karlo Falcon is a [age] year, eight month old male who was four months premature. He complains of vague pain, stiffness on the left side, and genu valgum. The pain appears to be vague and rather nonspecific. The position is genu valgum. The patient does not demonstrate any evidence spasticity to today's examination. He has mild pes planus. IMPRESSION: 1) Nonspecific pain in the lower extremities. 2) Hypotonia, cerebellar developmental delay. PLAN: Continued observation of his development. Dr. Hilton thought his cerebellar condition may improve over time but this will need to be followed, so we will see him in the Developmental Clinic as needed and in the Orthopedic Clinic if any other issues arise. Gaudencio Krueger M.D. Department of Orthopedics [id number] cc: Dr. Joey [place], [place] Catarina Armenta, PSeleneT. H[address] Elena [place], [place] Gypsy Murrell 3: 05 AM PDTdocumented in this encounter Plan of Treatment Not on filedocumented as of this encounter Visit Diagnoses Not on filedocumented in this encounter"
--- OUTSIDE RECORDS SUMMARY | ~2019-03-06 | XMS | Encounter Summary ---
Demographics + + + | Address | [address] | | | [place] [address] | + + + | Home Phone | | + + + | Preferred Language | Unknown | + + + | Marital Status | Single | + + + | Hindu Affiliation | CHR | + + + [...] [place] | | | | | [address] | | + + + + + | Tommy Falcon | ECON | [address] | | | | | [place] | | | | | [address] | | + + + + + Care Team Providers + +------+ + | Care Generator Operator Name | Role | Phone | + +------+ + | Jarret Griffith DO | PCP | | + +------+ + Encounter Details +--------+---------+ + + + | Date | Type | Department | Care Team | Description | +--------+---------+ + + + | 04/21/ | Office | [facility] | Brayn Link MD [address] | Acquired absence of | | 2014 | Visit | [place] | [address] | organ, eye (Primary | | | | Oculoplastics at | [place], [place] | Dx) | | | | [address] [facility] | [address] | | | | | [address] | [phone] | | | | | Mailcode: [facility] | | | | | | [place], [place] | | | | | | [address] | | | | | | [phone] | | | +--------+---------+ + + + [...] documented as of this encounter Progress Notes Deborah Fisher - 04/21/2015 11:15 AM PST Karlo Falcon is a 19 y.o. male Operation Performed: 02/17/15 1. 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 2. Placement of pediatric epidural retrobulbar catheter, left side. At last visit: 03/04/15 Imp: 1. Healing well after left enucleation with implant placement. Plan: 1. Will coordinate next follow up with prosthetic appointment with [facility] given distance they have to travel. Doing well. No pain. Came from [facility]-prosthesis will be done tomorrow. Iris conformer fits well. Socket: well healed, no exposure. Good fornices and volume. Good motility. I, Deborah FISHER, performed, reviewed or revised the above history, medications, allergi es, as well as performed elements noted in the Base Ophthalmology Exam. I have reviewed and edited history and tech documentation, and performed all elements to ab ove examination documentation. 1. Acquired absence of organ, eye Imp: 1. Healing well after left enucleation with implant placement. Plan: 1. F/U with [facility] for prosthesis tomorrow. 2. Follow up with Dr. Fitzgerald. Bryan Link MD, FACS Professor Ophthalmic Facial Plastic Surgery Departments of Ophthalmology and Otolaryngology & Head/Neck Surgery FAX: documented in this encounter Plan of Treatment Not on filedocumented as of this encounter Visit Diagnoses + + | Diagnosis | + + | Acquired absence of organ, eye - Primary | + + documented in this encounter"
--- OUTSIDE RECORDS SUMMARY | ~2019-03-06 | XMS | Encounter Summary ---
Demographics + + + | Address | [address] | | | [place] [address] | + + + | Home Phone | | + + + | Preferred Language | Unknown | + + + | Marital Status | Single | + + + | Nondenominational Affiliation | CHR | + + + | Race | White | + + + | Ethnic Group | Not or | + + + Author + + + | Author | [facility] | + + + | Organization | [facility] | + + + | Address | Unknown | + + + | Phone | Unavailable | + + + Support + + + + + | Name | Relationship | Address | Phone | + + + + + | Gilbert Falcon | ANGELES | [address] | | | | | [place] | | | | | [address] | | + + + + + | Tommy Falcon | ECON | [address] | | | | | [place] | | | | | [address] | | + + + + + Care Team Providers + +------+ + | Care Vacuum Metalizer Operator Name | Role | Phone | + +------+ + | Jarret Griffith DO | PCP | | + +------+ + Encounter Details +--------+ + + + + | Date | Type | Department | Care Team | Description | +--------+ + + + + | 01/14/ | Documentati | [facility] | Bryan Link MD [address] | | | 2015 | on | [place] | [address] | | | | | Oculoplastics at | [place], [place] | | | | | [address] | [address] | | | | | [address] | [phone] | | | | | Mailcode: [facility] | | | | | | [place], [place] | | | | | | [address] | | | | | | [phone] | | | +--------+ + + + [...]
--- OUTSIDE RECORDS SUMMARY | ~2019-03-06 | XMS | Encounter Summary ---
Demographics + + + | Address | [address] | | | [place] [address] | + + + | Home Phone | | + + + | Preferred Language | Unknown | + + + | Marital Status | Single | + + + | Church Affiliation | CHR | + + + [...] [place] | | | | | [address] | | + + + + + | Tommy Falcon | ECON | [address] | | | | | [place] | | | | | [address] | | + + + + + Care Team Providers + +------+ + | Care Business Process Coordinator Name | Role | Phone | + [...] as of this encounter Progress Notes Interface, Head Coach In - 04/11/2006 1:03 AM PSTCLINIC DATE: 09/20/1999 PEDIATRIC GASTROENTEROLOGY CLINIC SUBJECTIVE: Karlo is a [id number]-pld male toddler, 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 His mother has relocated to a nursing home last . His father is in the [...] or gastroesophageal reflux disease. ASSESSMENT 1. A 4-[id number]-htj male toddler ex-24-week premature with clinical gastroesophageal [...] Mele Milton M.D. Pediatric Gastroenterology / HS [id number] / [id number] / [id number] / [id number] cc: Chuck Gaitan M.D. [address] [address] [id number] signed by Interface, Head Coach In at 04/11/2006 1:03 AM PSTdocume nted in this encounter Plan of Treatment Not on filedocumented as of this encounter Visit Diagnoses Not on filedocumented in this encounter
--- OUTSIDE RECORDS SUMMARY | ~2019-03-06 | XMS | Encounter Summary ---
Demographics + + + | Address | [address] | | | [place] [address] | + + + | Home Phone | | + + + | Preferred Language | Unknown | + + + | Marital Status | Single | + + + | Pentecostalism Affiliation | CHR | + + + [...] [place] | | | | | [address] | | + + + + + | Tommy Falcon | ECON | [address] | | | | | [place] | | | | | [address] | | + + + + + Care Team Providers + +------+ + | Care Heating Unit Mechanic Name | Role | Phone | + +------+ + | Jarret Griffith DO | PCP | | + +------+ + Encounter Details +--------+ + + + + | Date | Type | Department | Care Team | Description | +--------+ + + + + | 04/13/ | Document-Sc | UNKNOWN DEPARTMENT | Unknown . | | | 2015 | anned | [address] [facility] | | | | | | [address] | | | | | | [place], [place] | | | | | | [address] | | | +--------+ + + + [...]
--- OUTSIDE RECORDS SUMMARY | ~2019-03-06 | XMS | Encounter Summary ---
Demographics + + + | Address | [address] | | | [place] [address] | + + + | Home Phone | | + + + | Preferred Language | Unknown | + + + | Marital Status | Single | + + + | Gnosticism Affiliation | CHR | + + + | Race | White | + + + | Ethnic Group | Not or | + + + Author + + + | Author | [facility] | + + + | Organization | [facility] | + + + | Address | Unknown | + + + | Phone | Unavailable | + + + Support + + + + + | Name | Relationship | Address | Phone | + + + + + | Gilbert Falcon | ANGELES | [address] | | | | | [place] | | | | | [address] | | + + + + + | Tommy Falcon | ECON | [address] | | | | | [place] | | | | | [address] | | + + + + + Care Team Providers + +------+ + | Care Industrial Psychologist Name | Role | Phone | + [...] Pre-Admission | | 2015 | Orders | [place] | [address] | | | | | Oculoplastics at | [place], [place] | | | | | [address] [facility] | [address] | | | | | [address] | [phone] | | | | | Mailcode: [facility] | | | | | | [place], [place] | | | | | | [address] | | | | | | [phone] | | | +--------+ + + + [...]
--- OUTSIDE RECORDS SUMMARY | ~2019-03-06 | XMS | Encounter Summary ---
Demographics + + + | Address | [address] | | | [place] [address] | + + + | Home Phone | | + + + | Preferred Language | Unknown | + + + | Marital Status | Single | + + + | Worship Affiliation | CHR | + + + | Race | White | + + + | Ethnic Group | Not or | + + + Author + + + | Author | [facility] | + + + | Organization | [facility] | + + + | Address | Unknown | + + + | Phone | Unavailable | + + + Support + + + + + | Name | Relationship | Address | Phone | + + + + + | Gilbert Falcon | ANGELES | [address] | | | | | [place] | | | | | [address] | | + + + + + | Tommy Falcon | ECON | [address] | | | | | [place] | | | | | [address] | | + + + + + Care Team Providers + +------+ + | Care Wild Animal Caretaker Name | Role | Phone | + +------+ + PCP | Unavailable | + +------+ + Encounter Details +--------+ + + + + | Date | Type | Department | Care Team | Description | +--------+ + + + + | 06/10/ | Office | [facility] | Note, Outpatient | Progress Note | | 1998 | Visit-Trans | MEDICINE | Clinic | [...] as of this encounter Progress Notes Interface, Senior Payroll Administrator In - 05/22/2006 3:18 AM PSTCLINIC DATE: 06/10/1998 PEDIATRIC GASTROENTEROLOGY CLINIC DATE OF : 89 HEIGHT: 65 centimeters, which is less than 50th percentile for age. WEIGHT: 6 kilograms, which is also less than 50th percentile for age and which represents an increase of 600 grams in one month. SUBJECTIVE: Karlo is a 3-year-old boy who is an ex 30-week premature (the time is approximate) whom I initially evaluated a month ago for concerns about apnea. A sleep study with a pH probe was performed. The sleep study was essentially normal, but the pH probe showed very mild gastroesophageal reflux that may or may not have been significant. I placed Karlo on Prilosec 5 mg twice a day and Karlo has been doing quite well. He is eating well, gaining weight well, and has had no emesis or spitting up since I last saw him for the pH probe. Mom has no concerns at this time. PHYSICAL EXAMINATION: GENERAL: A small, but proportionate, 3-year-old, white, male toddler in no apparent distress. Very active and playful. HEENT: Atraumatic and normocephalic. LUNGS: Clear to auscultation. HEART: Regular rate and rhythm without murmur. ABDOMEN: Soft, nontender, no hepatosplenomegaly or other masses palpated. EXTREMITIES: No clubbing, cyanosis, or edema. ASSESSMENT: 1. A 3-year-old boy, ex premature infant with moderate developmental delay, left eye blindness, and very mild gastroesophageal reflux diagnosed by a pH probe. 2. Eating well with no emesis and no clinical signs of gastroesophageal reflux. RECOMMENDATIONS: 1. Continue Prilosec for three more months and increase to 6 mg twice a day. 2. Follow up in three months. I want to thank Dr. Hennessy for referring Karlo to us. Mele Milton M.D. [id number] cc: POLO HENNESSY MD [facility] [id number] signed by Interface, Senior Payroll Administrator In at 05/22/2006 3:18 AM PSTdocumented in this encounter Plan of Treatment Not on filedocumented as of this encounter Visit Diagnoses Not on filedocumented in this encounter"
--- OUTSIDE RECORDS SUMMARY | ~2019-03-06 | XMS | Encounter Summary ---
Demographics + + + | Address | [address] | | | [place] [address] | + + + | Home Phone [...] Author + + + | Author | [facility] | + + + | Organization | [facility] | + + + | Address | Unknown | + + + | Phone | Unavailable | + + + Support + + + + + | Name | Relationship | Address | Phone | + + + + + | Gilbert Falcon | [address]ELES | [address] | | | | | [place] | | | | | [address] | | + + + + + | Tommy Falcon | ECON | [address] | | | | | [place] | | | | | [address] | | + + + + + Care Team Providers + +------+ + | Care Preschool Education Director Name | Role | Phone | + +------+ + PCP | Unavailable | + +------+ + Encounter Details +--------+ + + + + | Date | Type | Department | Care Team | Description | +--------+ + + + + | 05/12/ | Office | [facility] | Note, Outpatient | Progress Note | | 1997 | Visit-Trans | MEDICINE | Clinic | [...] as of this encounter Progress Notes Interface, Warehouse Traffic Supervisor In - 05/26/2006 5:04 AM PSTCLINIC DATE: 05/12/1998 SPEECH PATHOLOGY CLINIC SUBJECTIVE: This 12 month-old male (corrected age for prematurity is eight months), was referred for an upper GI with food (modified barium swallow study) secondary to significant reflux and respiratory difficulties. Karlo is currently on bottle-feeding with rice cereal to thicken formula with slit nipple and does take some baby foods and crackers. PAST MEDICAL HISTORY: 1. Herniorrhaphy. 2. Prematurity. 3. Emphysema of prematurity. 4. History of poor weight gain with significant reflux. OBJECTIVE: The patient was viewed in the lateral and AP planes during the administration of two consistencies of barium material; thin liquids and pureed foods were administered. The patient exhibited an adequate suck with the slit nipple resulting in a timely swallow. Inconsistent airway penetration without evidence of aspiration was evident. No nasal regurgitation, no pharyngeal pooling was noted. Following the modified barium swallow study an upper GI was completed by the Radiologist. The patient exhibited normal rotation of the stomach. Reflux was evident during the study. ASSESSMENT: Fairly normal swallow with mild airway penetration with thin liquids. Reflux still evident, although parents report no significant spitting up at home. PLAN: 1. Continue thickening formula with rice cereal to decrease airway penetration. 2. Continue bottle-feeding, spoon-feeding of purees, and crackers. 3. Formula first, followed by either crackers or purees for development skills. Pablito Mccartney., S.L.P. Speech Pathology PRANAY/noemi d ocumented in this encounter Plan of Treatment Not on filedocumented as of this encounter Visit Diagnoses Not on filedocumented in this encounter"
--- OUTSIDE RECORDS SUMMARY | ~2019-03-06 | XMS | Encounter Summary ---
Demographics + + + | Address | [address] | | | [place] [address] | + + + | Home Phone | | + + + | Preferred Language | Unknown | + + + | Marital Status | Single | + + + | Confucianist Affiliation | CHR | + + + | Race | White | + + + | Ethnic Group | Not or | + + + Author + + + | Organization | Unknown | + + + | Address | Unknown | + + + | Phone | Unavailable | + + + Support + + + + + | Name | Relationship | Address | Phone | + + + + + | Gilbert Falcon | ECON | [address] | | | | | [place], [place] | | | | | [address] | | + + + + + | Tommy Falcon | ECON | [address] | | | | | [place], [place] | | | | | [address] | | + + + + + Care Team Providers + +------+ + | Care Java Oracle Developer Name | Role | Phone | + +------+ + PCP | Unavailable | + +------+ + Encounter Details +--------+ + + + + | Date | Type | Department | Care Team | Description | +--------+ + + + + | 12/14/ | Procedure - | | Record, Operation | Operative Report | | 2000 | | | | | | | Transcribed | | | | +--------+ + + [...] + + | OPERATION RECORD | | 12/14/2000 | | Results for this | | | | | | procedure are in the | | | | | | results section. | + +--------+ + + + documented in this encounter Results OPERATION RECORD (12/14/2000) + + | Transcriptions | + + | Interface, Special Effects Specialist In - 03/09/2006 1:11 AM PDT | | [address] | | [place], [place] [address] | | [facility] System[facility] RECORDMed Rec No.: | | [id number] Date: 12/14/2000Name: Ramiro Falcon SURGEON: | | Faisal Tucrios M.D., Ph.D.HOT DIP PLATING SUPERVISOR: | | Charlie Greenberg M.D.PREOPERATIVE DIAGNOSES:1) Glaucoma, angled closure, left eye.2) | | Chronic retinal detachment.POSTOPERATIVE DIAGNOSES:1) Glaucoma, angled closure, left | | eye.2) Chronic retinal detachment.PRINCIPAL PROCEDURES PERFORMED:1) Pars plana | | vitrectomy, left eye.2) Pars plana lensectomy, left eye.ANESTHESIA:General | | anesthesia.SPECIMENS:None.COMPLICATIONS:There were no complications.INDICATIONS:The | | patient is a 5-year-old previously 24-week-old premature with 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 Over | | the last three to four weeks, he has complained ofconstant headache, has been | | evaluated by computerized tomography scan whichis negative and with suspicion of | | increased ocular pressure in his lefteye, he comes to the operating room today | | for an examination underanesthesia and ultrasound examination of the anterior | | segment.The patient was initially consented for examination under anesthesia | | andultrasound examination. Upon the examination under anesthesia it was notedthat the | | intraocular pressure in the left eye was 42 by Jason-Pen. The UBMultrasound on the | | anterior segment of the left eye demonstrated ananteriorly rotated lens, with | | closure of angle of the left eye. At thispoint, the parents were then consented to | | a pars plana lensectomy and parsplana vitrectomy to help alleviate this problem, | | after the parentsunderstood the risks and benefits of the procedure and elected to | | proceed.DESCRIPTION OF PROCEDURE:The patient was brought to the operating room and | | laid in the supineposition. All appropriate intravenous lines and | | anesthesia wasadministered by the anesthesia service. After general anesthesia was | | fullyinduced, the left eye was prepped and draped in the usual sterile fashionfor | | intraocular surgery.The left eye, conjunctival peritomies were performed in the | | superotemporaland superonasal quadrants. Hemostasis was achieved using wet | | fieldcautery. The sclerotomies were then made using the MVR blade 3 | | mmposterior to the limbus in the superotemporal and superonasal quadrants.After | | sclerotomies were made, the lens was then engaged with the MVR bladefrom each | | sclerotomy. Taking an irrigating light pipe, scleral plugs werethen placed after | | sclerotomies were made and were in place at all times onthe instruments around the | | eye. Using an irrigating light pipe andvitrector, a pars plana lensectomy was | | then performed in the standardfashion.After all central lens material was removed, | | residual lenticular capsuleand zonules were then carefully engaged and dissected | | from sulcus using aDejuan forceps. Core vitrectomy was also carefully performed at | | this timeusing the vitrector and the irrigating light pipe. Once a core vitrectomywas | | completed and all residual lenticular material was removed, the Dejuanforceps were then | | used again to carefully stretch the pupil and help tobreak synechiae up through the | | pupil and iris in the angle. This was donefor 360 degrees around the pupil.Following | | this maneuver, scleral plugs were placed and the wounds werecarefully closed one at | | a time over the irrigating light pipe to maintainocular pressure. The sclerotomies | | were closed using 7-0 Vicryl sutures.Following closure of the sclerotomy, the | | conjunctiva was freed and closedusing 7-0 Vicryl sutures. The conjunctiva was | | injected with 1 cc ofZinacef and 1 cc of Kenalog. The lid speculum was removed. | | Antibioticointment was placed in the eye and a dressing and a shield were | | applied.The patient recovered from general anesthesia without complication and wentto | | the recovery room in good condition.Charlie Greenberg M.D. Faisal Acevedo | | Anabelle Turcios, Ph.D.JY:x63D: 12/15/2000T: 12/18/[id number]: | |point, the parents were then consented to a pars plana lensectomy and pars | |plana vitrectomy to help alleviate this problem, after the parents | |understood the risks and benefits of the procedure and elected to proceed. | | | | | |DESCRIPTION OF PROCEDURE: | |The patient was brought to the operating room and laid in the supine | |position. All appropriate intravenous lines and anesthesia was | |administered by the anesthesia service. After general anesthesia was fully | |induced, the left eye was prepped and draped in the usual sterile fashion | |for intraocular surgery. | | | |The left eye, conjunctival peritomies were performed in the superotemporal | |and superonasal quadrants. Hemostasis was achieved using wet field | |cautery. The sclerotomies were then made using the MVR blade 3 mm | |posterior to the limbus in the superotemporal and superonasal quadrants. | |After sclerotomies were made, the lens was then engaged with the MVR blade | |from each sclerotomy. Taking an irrigating light pipe, scleral plugs were | |then placed after sclerotomies were made and were in place at all times on | |the instruments around the eye. Using an irrigating light pipe and | |vitrector, a pars plana lensectomy was then performed in the standard | |fashion. | | | |After all central lens material was removed, residual lenticular capsule | |and zonules were then carefully engaged and dissected from sulcus using a | |Ángel forceps. Core vitrectomy was also carefully performed at this time | |using the vitrector and the irrigating light pipe. Once a core vitrectomy | |was completed and all residual lenticular material was removed, the Ángel | |forceps were then used again to carefully stretch the pupil and help to | |break synechiae up through the pupil and iris in the angle. This was done | |for 360 degrees around the pupil. | | | |Following this maneuver, scleral plugs were placed and the wounds were | |carefully closed one at a time over the irrigating light pipe to maintain | |ocular pressure. The sclerotomies were closed using 7-0 Vicryl sutures. | |Following closure of the sclerotomy, the conjunctiva was freed and closed | |using 7-0 Vicryl sutures. The conjunctiva was injected with 1 cc of | |Zinacef and 1 cc of Kenalog. The lid speculum was removed. Antibiotic | |ointment was placed in the eye and a dressing and a shield were applied. | |The patient recovered from general anesthesia without complication and went | |to the recovery room in good condition. | | | | | | | |Charlie Greenberg M.D. Faisal Turcios M.D., Ph.D. | | | |JY:x63 | | | | | | | | | | | |[id number] | | | |CC: | + + documented in this encounter Visit Diagnoses Not on filedocumented in this encounter"
--- OUTSIDE RECORDS SUMMARY | ~2019-03-06 | XMS | Encounter Summary ---
Demographics + + + | Address | [address] | | | [place] [address] | + + + | Home Phone | | + + + | Preferred Language | Unknown | + + + | Marital Status | Single | + + + | Rastafari Affiliation | CHR | + + + | Race | White | + + + | Ethnic Group | Not or | + + + Author + + + | Author | [facility] | + + + | Organization | [facility] | + + + | Address | Unknown | + + + | Phone | Unavailable | + + + Support + + + + + | Name | Relationship | Address | Phone | + + + + + | Gilbert Falcon | ANGELES | [address] | | | | | [place] | | | | | [address] | | + + + + + | Tommy Falcon | ECON | [address] | | | | | [place] | | | | | [address] | | + + + + + Care Team Providers + +------+ + | Care Brake Repair Supervisor Name | Role | Phone | + +------+ + | Jarret Griffith DO | PCP | | + +------+ + Encounter Details +--------+ + + + + | Date | Type | Department | Care Team | Description | +--------+ + + + + | 01/14/ | Documentati | [facility] | Bryan Link MD [address] | | | 2015 | on | [address] | [address] | | | | | Oculoplastics at | [place], [place] | | | | | [address] | [address] | | | | | [address] | [phone] | | | | | Mailcode: [facility] | | | | | | [place], [place] | | | | | | [address] | | | | | | [phone] | | | +--------+ + + + [...]
--- OUTSIDE RECORDS SUMMARY | ~2019-03-06 | XMS | Encounter Summary ---
Demographics + + + | Address | [address] | | | [place] [address] | + + + | Home Phone [...] Author + + + | Author | [facility] | + + + | Organization | [facility] | + + + | Address | Unknown | + + + | Phone | Unavailable | + + + Support + + + + + | Name | Relationship | Address | Phone | + + + + + | Gilbert Falcon | ANGELES | [address] | | | | | [place] | | | | | [address] | | + + + + + | Tommy Falcon | ECON | [address] | | | | | [place] | | | | | [address] | | + + + + + Care Team Providers + +------+ + | Care Supervisor Sanding Name | Role | Phone | + [...] + + + + | 02/17/ | Anesthesia | [facility] INTRA OP LOC | Janet Cross | | | 2014 | Event | [address] | [address], [address] | | | | | Michelle [place] | [address] | | | | | [facility], | [place], [place] | | | | | [place] [address] | [address] | | | | | | [phone] | | | | | | | | | | | | Bryan Paris CRNA | | +--------+ + + + + Anesthesia Record + + + + + | Procedure Name | Responsible | Anesthesia Start | Anesthesia Stop Time | | | Anesthesiologist | Time | | + + + + + | LEFT ENUCLEATION | Janet Cross, | 02/17/15 1328 | 02/17/15 1416 | | WITH 20 MM MEDPOR | MD | | | | IMPLANT Specimen: A) | | | | | Left globe (Left | | | | | Eye) | | | | + + + + + +----+---+ + + | Da | T | Event | Comment | | te | i | | | | | m | | | | | e | | | +----+---+ + + | 09 | 1 | | | | /2 | 3 | | | | 9/ | 2 | | | | 20 | 2 | | | | 15 | | | | +----+---+ + + | | 1 | Pt. Check | Prior to anesthesia start, pt. Identified, examined, chart | | | 3 | | reviewed, MIRELLA held, anesthetic plan made or approved by | | | 2 | | attending anesthesiologist. MIRELLA GA; NPO>8H; Davidson GERD NPO | | | 2 | | status confirmed as appropriate for procedure Preoperative | | | | | evaluation: unchanged | +----+---+ + + | | 1 | Eq Check | Anesthesia machine checked Equipment verified | | | 3 | | | | | 2 | | | | | 2 | | | +----+---+ + + | | 1 | Preprocedur | Pt ID confirmed, informed consent obtained, insertion site | | | 3 | e Checklist | marked, equipment available | | | 2 | | | | | 2 | | | +----+---+ + + | | 1 | An Start | | | | 3 | | | | | 2 | | | | | 8 | | | +----+---+ + + | | 1 | Abx | | | | 3 | Administere | | | | 3 | d | | | | 0 | | | +----+---+ + + | | 1 | An Start | | | | 3 | Data | | | | 3 | | | | | 2 | | | +----+---+ + + | | 1 | Vitals | Monitors applied Vital signs checked Patient ready for anesthesia | | | 3 | Checked | | | | 3 | | | | | 2 | | | +----+---+ + + | | 1 | Quick CEI | a) Monitors Placed b) Arms <90 degrees c) Warm Blankets placed | | | 3 | | Upper and Lower Body d) Bed Turned 90 Degrees | | | 3 | | | | | 2 | | | +----+---+ + + | | 1 | Std. Airway | 4.5 LMA placed atraumatically; | | | 3 | Mgt. | | | | 3 | | | | | 6 | | | +----+---+ + + | | 1 | Ready | | | | 3 | | | | | 3 | | | | | 7 | | | +----+---+ + + | | 1 | Timeout | | | | 3 | | | | | 3 | | | | | 9 | | | +----+---+ + + | | 1 | Retrobulbar | | | | 3 | Block by | | | | 4 | Surgeon | | | | 1 | | | +----+---+ + + | | 1 | Incision | | | | 3 | | | | | 4 | | | | | 5 | | | +----+---+ + + | | 1 | Quick Note | Notable reaction to 0.2mg Glycopyrrolate; | | | 3 | | | | | 4 | | | | | 7 | | | +----+---+ + + | | 1 | Surgery end | | | | 4 | | | | | 1 | | | | | 4 | | | +----+---+ + + | | 1 | LMA Removed | | | | 4 | | | | | 1 | | | | | 4 | | | +----+---+ + + | | 1 | an stop | | | | 4 | data | | | | 1 | | | | | 4 | | | +----+---+ + + | | 1 | Anesthesia | | | | 4 | End | | | | 1 | | | | | 6 | | | +----+---+ + + +------+ | Meds | +------+ + + + | Name | Total | + + + | midazolam | 2 mg | + + + | propofol | 180 mg | + + + | HYDROmorphone | 1 mg | + + + | ePHEDrine | 25 mg | + + + | ceFAZolin | 1,000 mg | + + + | dexamethasone | 8 mg | + + + | ondansetron | 4 mg | + + + | metoclopramide | 20 mg | + + + | glycopyrrolate | 0.2 mg | + + + | labetalol | 15 mg | + + + | lactated ringers IV | 800 mL | + + + + + | Name | + + | Insp Adair | + + | Et Adair | + + | Insp Sevo | + + | Et Sevo | + + | O2 Flow Rate (Total Liters) | + + + + | No blood administrations on file. | + + +--------+ + + + | Type | Details | Placement | Removal | +--------+ + + + | Non-De Luna | 02/17/15; (placed in OR by | 02/17/15 0000 by | 02/17/15 1452 by | | charlotte | GONZÁLEZ); #5 100mm Red; Other | Thomas Fortune Chi, RN | Thomas Fortune Chi, RN | | | (Comment) (patient woke up) | | | | Airway | | | | +--------+ + + + | Periph | 02/17/15; 1244; Left; | 02/17/15 1244 by | 02/17/15 1525 by | | eral | Antecubital; 22 g; Positive; | Joy Muller RN | Thomas Fortune Chi, RN | | IV | 02/17/15; 1525 | | | +--------+ + + + | Incisi | 02/17/15; 1426; Left; eye; | 02/17/15 1426 by | 02/17/15 1526 by | | on | 02/17/15; 1526 | Thomas Fortune Chi, RN | Thomas Fortune Chi, RN | +--------+ + + + documented in this encounter Social History + +-------+ +--------+------+ | Tobacco [...] filedocumented in this encounter Administered Medications + +--------+ + +------+------+ | Medication Order | MAR | Action | Dose | Rate | Site | | | Action | Date | | | | + +--------+ + +------+------+ | ceFAZolin (ANCEF) injection | Given | 02/18/20 | 1,000 mg | | | | intravenous, INTRAPROCEDURE PRN, | | 15 1:30 | | | | | Starting 02/17/15 at 1330, | | PM PDT | | | | | Until 02/17/15 at 1414 | | | | | | + +--------+ + +------+------+ +---+---+ | | | +---+---+ + +-------+ +------+---+---+ | dexamethasone (DECADRON) | Given | 02/18/20 | 8 mg | | | | injection intravenous, | | 15 1:30 | | | | | INTRAPROCEDURE PRN, Starting Tue | | PM PDT | | | | | 02/17/15 at 1330, Until Tue | | | | | | | 02/17/15 at 1414 | | | | | | + +-------+ +------+---+---+ +---+---+ | | | +---+---+ + +-------+ +-------+---+---+ | ePHEDrine injection | Given | 02/18/20 | 25 mg | | | | intravenous, INTRAPROCEDURE PRN, | | 15 1:37 | | | | | Starting e 02/17/15 at 1337, | | PM PDT | | | | | Until Mon02/17/15 at 1414 | | | | | | + +-------+ +-------+---+---+ +---+---+ | | | +---+---+ + +-------+ +--------+---+---+ | glycopyrrolate (MARY BETH) | Given | 02/18/20 | 0.2 mg | | | | injection INTRAPROCEDURE PRN, | | 15 1:44 | | | | | Starting Mon02/17/15 at 1344, | | PM PDT | | | | | Until Mon02/17/15 at 1414 | | | | | | + +-------+ +--------+---+---+ +---+---+ | | | +---+---+ + +-------+ +--------+---+---+ | HYDROmorphone (DILAUDID) | Given | 02/18/20 | 0.6 mg | | | | injection INTRAPROCEDURE PRN, | | 15 1:34 | | | | | Starting 02/17/15 at 1330, | | PM PDT | | | | | Until 02/17/15 at 1414, | | | | | | | sedation | | | | | | + +-------+ +--------+---+---+ +-------+ +--------+---+---+ | Given | 02/18/20 | 0.4 mg | | | | | 15 1:30 | | | | | | PM PDT | | | | +-------+ +--------+---+---+ +---+---+ | | | +---+---+ + +-------+ +-------+---+---+ | labetalol (TRANDATE) IV | Given | 02/18/20 | 15 mg | | | | injection intravenous, | | 15 1:50 | | | | | INTRAPROCEDURE PRN, Starting Tue | | PM PDT | | | | | 02/17/15 at 1350, Until Tue | | | | | | | 02/17/15 at 1414 | | | | | | + +-------+ +-------+---+---+ +---+---+ | | | +---+---+ + + + +---+---+---+ | lactated ringers IV 10 mL/hr, | given by | 02/18/20 | | | | | intravenous, CONTINUOUS, Starting | | 15 1:50 | | | | | 02/17/15 at 1300, Until Tue | anesthes | PM PDT | | | | | 02/17/15 at 2214 | iology | | | | | + + + +---+---+---+ + + + + +---+ | given [...] + +---+ +---+---+ | | | +---+---+ + +-------+ +-------+---+---+ | metoclopramide HCl (REGLAN) | Given | 02/18/20 | 20 mg | | | | injection intravenous, | | 15 1:56 | | | | | INTRAPROCEDURE PRN, Starting Tue | | PM PDT | | | | | 02/17/15 at 1356, Until Tue | | | | | | | 02/17/15 at 1414, nausea/vomiting | | | | | | + +-------+ +-------+---+---+ +---+---+ | | | +---+---+ + +-------+ +------+---+---+ | midazolam (VERSED) injection | Given | 02/18/20 | 2 mg | | | | INTRAPROCEDURE PRN, Starting Tue | | 15 1:30 | | | | | 02/17/15 at 1330, Until Tue | | PM PDT | | | | | 02/17/15 at 1414, sedation | | | | | | + +-------+ +------+---+---+ +---+---+ | | | +---+---+ + +-------+ +------+---+---+ | ondansetron (ZOFRAN) injection | Given | 02/18/20 | 4 mg | | | | INTRAPROCEDURE PRN, Starting Tue | | 15 1:56 | | | | | 02/17/15 at 1356, Until Tue | | PM PDT | | | | | 02/17/15 at 1414 | | | | | | + +-------+ +------+---+---+ +---+---+ | | | +---+---+ + +-------+ +--------+---+---+ | propofol INTRAPROCEDURE PRN, | Given | 02/18/20 | 180 mg | | | | Starting 02/17/15 at 1336, | | 15 1:36 | | | | | Until Jaya 02/17/15 at 1414 | | PM PDT | | | | + +-------+ +--------+---+---+ +---+---+ | | | +---+---+ documented in this encounter"
--- OUTSIDE RECORDS SUMMARY | ~2019-03-06 | XMS | Encounter Summary ---
Demographics + + + | Address | [address] | | | [place] [address] | + + + | Home Phone | | + + + | Preferred Language | Unknown | + + + | Marital Status | Single | + + + | Jainism Affiliation | CHR | + + + | Race | White | + + + | Ethnic Group | Not or | + + + Author + + + | Author | [facility] | + + + | Organization | [facility] | + + + | Address | Unknown | + + + | Phone | Unavailable | + + + Support + + + + + | Name | Relationship | Address | Phone | + + + + + | Gilbert Falcon | ANGELES | [address] | | | | | [place] | | | | | [address] | | + + + + + | Tommy Falcon | ECON | [address] | | | | | [place] | | | | | [address] | | + + + + + Care Team Providers + +------+ + | Care Grievance Manager Name | Role | Phone | + +------+ + PCP | Unavailable | + +------+ + Reason for Visit + + + | Reason | Comments | + + + | Return Patient | high IOP | + + + Encounter Details +--------+---------+ + + + | Date | Type | Department | Care Team | Description | +--------+---------+ + + + | 03/07/ | Office | [facility] | Bryan Turcios | Old Retinal | | 2006 | Visit | [facility] | [address] | Detachment, Total or | | | | [address] | [address], | Subtotal (Primary | | | | [address] | [place] [address] | Dx) | | | | Mailcode: [address] | [phone] | | | | | [place], [place] | | | | | | [address] | | | | | | [phone] | | | +--------+---------+ + + + [...] documented as of this encounter Progress Notes Humaira Coulter, Rebecca - 03/07/2007 9:55 AM PDT Retina Division Progress Note: Return Visit CC: Follow up HPI: Karlo Falcon is a 11 y.o. male. Hx of chronic RD,and angle closure OS. No pain c/o from pt. Mom states he's a little "grumpy" is all. Saw Dr Altamirano, end of Dec. IOP=was 30's OS. Rechecked 01/26 was 21 OS. 02/28/07 for Pressures checks-5x OD ranging ~18, OS was 32. Past Medical History Diagnosis Date Unspecified Glaucoma Unspecified Retinal Detachment Unspecified Asthma Acid Reflux Referring Provider: Dr. Altamirano Primary Care Provider: Dr. Jarret Griffith M.D. POH: chronic RD left eye, s/p PPV/PPL for white lens PPV,Lens OS 12/14/00, Allergies:Review of patient's allergies indicates no known allergies. No current outpatient prescriptions on file. Examination: 03/07/2007 Va cc PH IOP 10:12 AM Right Eye 20/20+2 Left Eye NLP (tested by me, JTS) / 25 Pupils were 5.5mm RRL, OS 8.5mm slow reaction with relative afferent pupillary defect OS Cooperative and pleasant young man. Both eyes dilated with superdrops @ 10:12 AM Rebecca Gerardo Cot Chart notes reviewed SLE OD OS Lids Unremarkable Unremarkable Conjunctiva White White Cornea Clear Clear AC Deep and quiet Deep and quiet Iris Normal Superior surgical defect and posterior synechs Lens Clear Aphakic Ant Vit Clear Clear, with closed funnel RD to posterior lens remnants at 5:00 DFE: Ophthalmoscopy of the right eye disclosed normal disc, macula, vessels, and periphery. Ophthalmoscopy of the left eye disclosed a total closed funnel RD. This retinal tissue is r emarkably atrophic IMPRESSION: Mildly increased IOP in an NLP eye. Karlo is comfortable. I would not treat this PLAN: F/U with Dr Altamirano as planned Bryan Turcios MD, 03/07/2007 documented in this en counter Plan of Treatment Not on filedocumented as of this encounter Visit Diagnoses + + | Diagnosis | + + | Old retinal detachment, total or subtotal - Primary | + + documented in this encounter
--- OUTSIDE RECORDS SUMMARY | ~2019-03-06 | XMS | Encounter Summary ---
Demographics + + + | Address | [address] | | | [place] [address] | + + + | Home Phone | | + + + | Preferred Language | Unknown | + + + | Marital Status | Single | + + + | Jain Affiliation | CHR | + + + | Race | White | + + + | Ethnic Group | Not or | + + + Author + + + | Author | [facility] | + + + | Organization | [facility] | + + + | Address | Unknown | + + + | Phone | Unavailable | + + + Support + + + + + | Name | Relationship | Address | Phone | + + + + + | Gilbert Falcon | ANGELES | [address] | | | | | [place] | | | | | [address] | | + + + + + | Tommy Falcon | ECON | [address] | | | | | [place] | | | | | [address] | | + + + + + Care Team Providers + +------+ + | Care Cloth Bleaching Range Tender Name | Role | Phone | + [...] as of this encounter Progress Notes Interface, Chain Saw Mechanic In - 05/26/2006 5:04 AM PSTCLINIC DATE: [...]
--- OUTSIDE RECORDS SUMMARY | ~2019-03-06 | XMS | Encounter Summary ---
Demographics + + + | Address | [address] | | | [place] [address] | + + + | Home Phone [...] Author + + + | Author | [facility] | + + + | Organization | [facility] | + + + | Address | Unknown | + + + | Phone | Unavailable | + + + Support + + + + + | Name | Relationship | Address | Phone | + + + + + | Gilbert Falcon | ANGELES | [address] | | | | | [place] | | | | | [address] | | + + + + + | Tommy Falcon | ECON | [address] | | | | | [place] | | | | | [address] | | + + + + + Care Team Providers + +------+ + | Care Machine Paint Mixer Name | Role | Phone | + [...] of | | 2014 | Visit | [place] | [address] | organ, eye (Primary | | | | Oculoplastics at | [place], [place] | Dx) | | | | [address] [facility] | [address] | | | | | [address] | [phone] | | | | | Mailcode: [facility] | | | | | | [place], [place] | | | | | | [address] | | | | | | [phone] | | | +--------+---------+ + + + [...]
--- OUTSIDE RECORDS SUMMARY | ~2019-03-06 | XMS | Encounter Summary ---
Demographics + + + | Address | [address] | | | [place] [address] | + + + | Home Phone | | + + + | Preferred Language | Unknown | + + + | Marital Status | Single | + + + | Judaism Affiliation | CHR | + + + | Race | White | + + + | Ethnic Group | Not or | + + + Author + + + | Author | [facility] | + + + | Organization | [facility] | + + + | Address | Unknown | + + + | Phone | Unavailable | + + + Support + + + + + | Name | Relationship | Address | Phone | + + + + + | Gilbert Falcon | ANGELES | [address] | | | | | [place] | | | | | [address] | | + + + + + | Tommy Falcon | ECON | [address] | | | | | [place] | | | | | [address] | | + + + + + Care Team Providers + +------+ + | Care Hotel Lobby Concierge Name | Role | Phone | + +------+ + PCP | Unavailable | + +------+ + Encounter Details +--------+ + + + + | Date | Type | Department | Care Team | Description | +--------+ + + + + | 12/13/ | Office | [facility] | Note, [...] as of this encounter Progress Notes Interface, Custom Studio Coordinator In - 04/07/2006 1:02 AM PSTCLINIC DATE: 12/14/1999 PEDIATRIC GASTROENTEROLOGY CLINIC SUBJECTIVE: Karlo is a 4-year-old boy who is ex-28 weeks' premature infant with some sensorineural deficit, bronchopulmonary dysplasia, and left-eye blindness that has been slowly improving. His mother states that when she stopped the omeprazole one month ago because the prescription ran out, he began vomiting. This resolved after he restarted the omeprazole. His coughing has resolved since his last visit to me in September. His mother is also concerned that Karlo is not eating as much as he should. He does not seem to like meat but eats crackers and other table foods and drinks well. His fluid intake consists primarily of water and juice. He has had no fevers, no diarrhea, no rashes, skin breakdown, joint swelling, or jaundice. His breathing has been good, and he has not required any breathing treatments for many months. OBJECTIVE: VITAL SIGNS: His weight is 10.35 kg which has increased 0.35 kg since September 20, 1999, and this remains below 5th percentile albeit on a curve. His height is 83.8 cm which has increased 5.8 cm since September 20, 1999, and also remains below the 5th percentile. Weight for height is about 7th to 10th percentile. GENERAL: Well-developed little boy in no apparent distress. The patient is alert and oriented x 4. He is reactive. HEENT: Atraumatic and normocephalic. Sclerae are clear. Extraocular movements are intact. Tympanic membranes are clear bilaterally. Anterior oropharynx is clear. NECK: Supple without lymphadenopathy. HEART: Regular rate and rhythm without murmur. ABDOMEN: Soft and nontender. No hepatosplenomegaly or other masses palpated. LUNGS: Clear to auscultation. EXTREMITIES: No clubbing, cyanosis, or edema. SKIN: Clear without lesions. ADDENDUM: Although his weight for height paper is in 7th to 10th percentile, physically, his weight for height ratio appears much greater than that with good subcutaneous tissue deposition. ASSESSMENT: The patient is a 53-tkeee-otp male toddler ex-28 weeks' premature infant with gastroesophageal reflux disease, chronic, who is doing well on omeprazole. RECOMMENDATIONS 1. Continue omeprazole at 10 mg twice a day for another three months, then stop. I asked Karlo's mother to contact me if his symptoms recur after the omeprazole is stopped at that time. 2. Offer milk or milk products instead of water or juice to Karlo. This should increase his caloric intake significantly. I thank Dr. Hennessy for referring Karlo to me. Please feel free to contact me with any questions or concerns. Mele Milton M.D. Pediatric Gastroenterology / [id number] / [id number] / [id number] / cc: POLO HENNESSY MD [facility] [address] [address] [id number] signed by Interface, Custom Studio Coordinator In at 04/07/2006 1:02 AM PSTdocume nted in this encounter Plan of Treatment Not on filedocumented as of this encounter Visit Diagnoses Not on filedocumented in this encounter"
--- OUTSIDE RECORDS SUMMARY | ~2019-03-06 | XMS | Encounter Summary ---
Demographics + + + | Address | [address] | | | [place] [address] | + + + | Home Phone | | + + + | Preferred Language | Unknown | + + + | Marital Status | Single | + + + | Roman Catholic Affiliation | CHR | + + + | Race | White | + + + | Ethnic Group | Not or | + + + Author + + + | Author | [facility] | + + + | Organization | [facility] | + + + | Address | Unknown | + + + | Phone | Unavailable | + + + Support + + + + + | Name | Relationship | Address | Phone | + + + + + | Gilbert Falcon | ANGELES | [address] | | | | | [place] | | | | | [address] | | + + + + + | Tommy Falcon | ECON | [address] | | | | | [place] | | | | | [address] | | + + + + + Care Team Providers + +------+ + | Care Pattern Checker Name | Role | Phone | + +------+ + | Jarret Griffith DO | PCP | | + +------+ + Encounter Details +--------+ + + + + | Date | Type | Department | Care Team | Description | +--------+ + + + + | 01/13/ | Documentati | [facility] | Bryan Link MD [address] | | | 2015 | on | [place] | [address] | | | | | Oculoplastics at | [place], [place] | | | | | [address] | [address] | | | | | [address] | [phone] | | | | | Mailcode: [facility] | | | | | | [place], [place] | | | | | | [address] | | | | | | [phone] | | | +--------+ + + + [...]
--- OUTSIDE RECORDS SUMMARY | ~2019-03-06 | XMS | Encounter Summary ---
Demographics + + + | Address | [address] | | | [place] [address] | + + + | Home Phone | | + + + | Preferred Language | Unknown | + + + | Marital Status | Single | + + + | Sikh Affiliation | CHR | + + + | Race | White | + + + | Ethnic Group | Not or | + + + Author + + + | Author | [facility] | + + + | Organization | [facility] | + + + | Address | Unknown | + + + | Phone | Unavailable | + + + Support + + + + + | Name | Relationship | Address | Phone | + + + + + | Gilbert Falcon | ANGELES | [address] | | | | | [place] | | | | | [address] | | + + + + + | Tommy Falcon | ECON | [address] | | | | | [place] | | | | | [address] | | + + + + + Care Team Providers + +------+ + | Care Project Intern Name | Role | Phone | + [...] S[facility] | | | | | | [facility] | | | | | | [address] | | | | | | Michelle Soriano Mailcode: | | | | | | [facility] [address] | | | | | | [place], [place] | | | | | | [address] | | | | | | [phone] | | | +--------+ + + + [...] | | + +---------+ + + | [facility] DEPARTMENT OF | | | | | RADIOLOGY | | | | + +---------+ + + documented in this encounter Visit Diagnoses Not on filedocumented in this encounter"
--- OUTSIDE RECORDS SUMMARY | ~2019-03-06 | XMS | Encounter Summary ---
Demographics + + + | Address | [address] | | | [place] [address] | + + + | Home Phone [...] [place] | | | | | [address] | | + + + + + | Tommy Falcon | ECON | [address] | | | | | [place] | | | | | [address] | | + + + + + Care Team Providers + +------+ + | Care Engine Repairer Service Name | Role | Phone | + [...] [address] | | | | | | [place], [place] | | | | | | [address] | | | | | | [phone] | | | +--------+ + + + [...]
--- OUTSIDE RECORDS SUMMARY | ~2019-03-06 | XMS | Encounter Summary ---
Demographics + + + | Address | [address] | | | [place] [address] | + + + | Home Phone | | + + + | Preferred Language | Unknown | + + + | Marital Status | Single | + + + | Jewish Affiliation | CHR | + + + | Race | White | + + + | Ethnic Group | Not or | + + + Author + + + | Author | [facility] | + + + | Organization | [facility] | + + + | Address | Unknown | + + + | Phone | Unavailable | + + + Support + + + + + | Name | Relationship | Address | Phone | + + + + + | Gilbert Falcon | ANGELES | [address] | | | | | [place] | | | | | [address] | | + + + + + | Tommy Falcon | ECON | [address] | | | | | [place] | | | | | [address] | | + + + + + Care Team Providers + +------+ + | Care Chain Saw Operator Name | Role | Phone | [...] + + | 02/17/ | Hospital | [facility] | Bryan Link MD [address] | | | 2014 | Encounter | [address] | | | | [address] | [place], [place] | | | | | [facility] | [address] | | | | | [address] | [phone] | | | | | [place] [address] | | | | | | [phone] | | | +--------+ + + + [...] weekends and holidays, call and ask the jig box operator to page the [facility] oncology transplant network manager. ? Return appointment date: ? Time: documented [...] sent to same-day surgery in good condition.RAFAEL Blanchard/DAJUANLDD: | | 02/17/2015 14:19:02DT: 02/17/2015 14:37:18Job #: [id number]: Monae Fitzgerald Sr, | | Jen Griffith [...] |GIOVANY/DAJUANL | | | | | | /[id number] | | | |CC: Monae Fitzgerald Sr, [...] + + | [facility] | [address] | [place] [address] | | | INSTITUTE | [address]. | [...]
--- OUTSIDE RECORDS SUMMARY | ~2019-03-06 | XMS | Encounter Summary ---
Demographics + + + | Address | [address] | | | [place] [address] | + + + | Home Phone | | + + + | Preferred Language | Unknown | + + + | Marital Status | Single | + + + | Tenriism Affiliation | CHR | + + + | Race | White | + + + | Ethnic Group | Not or | + + + Author + + + | Author | [facility] | + + + | Organization | [facility] | + + + | Address | Unknown | + + + | Phone | Unavailable | + + + Support + + + + + | Name | Relationship | Address | Phone | + + + + + | Gilbert Falcon | ANGELES | [address] | | | | | [place] | | | | | [address] | | + + + + + | Tommy Falcon | ECON | [address] | | | | | [place] | | | | | [address] | | + + + + + Care Team Providers + +------+ + | Care Senior Java Data Architect Name | Role | Phone | + [...] as of this encounter Progress Notes Interface, Protein Chemist In - 04/07/2006 1:02 AM PSTCLINIC DATE: [...] tissue deposition. ASSESSMENT: The patient is a 22-bbtnu-lyz male toddler ex-28 weeks' premature infant with [...] concerns. Mele Milton M.D. Pediatric Gastroenterology / [id number] / [id number] / [id number] / cc: POLO HENNESSY MD [facility] [place] [address] [address] [id number] signed by Interface, Protein Chemist In at 04/07/2006 1:02 AM PSTdocume nted in this encounter Plan of Treatment Not on filedocumented as of this encounter Visit Diagnoses Not on filedocumented in this encounter"
--- OUTSIDE RECORDS SUMMARY | ~2019-03-06 | XMS | Encounter Summary ---
Demographics + + + | Address | [address] | | | [place] [address] | + + + | Home Phone [...] [place] | | | | | [address] | | + + + + + | Tommy Falcon | ECON | [address] | | | | | [place] | | | | | [address] | | + + + + + Care Team Providers + +------+ + | Care Vial Gauger Name | Role | Phone | + +------+ + PCP | Unavailable | + +------+ + Encounter Details +--------+ + + + + | Date | Type | Department | Care Team | Description | +--------+ + + + + | 04/28/ | Results | Registration [id number] | | | | 1998 | Only | [address] | | | | | | Bo Mailcode: [id number] | | | | | | [place] | | | | | | [address] | | | | | | [phone] | | | +--------+ + + + [...] | + +--------+ + + + | CBC TESTS 2 | Routin | 04/28/1998 | | Results for this | | | e | 2:15 PM | | procedure are in the | | | | PST | | results section. | + +--------+ + + + | CBC TESTS 2 | Routin | 04/28/1998 | | Results for this | | | e | 2:00 PM | | procedure are in the | | | | PST | | results section. | + +--------+ + + + documented in this encounter Results CBC TESTS 2 (04/28/1998 2:15 PM PST) + + + + + + | Component | Value | Ref Range | Performed | Pathologist | | | | | At | Signature | + + + + + + | CBC W/AUTO | COLLECTD | | | | | DIFF | | | | | + + + + + + | LYMPHOCYTE | 46. (L) | % | | | | % | | | | | + + + + + + | LYMPHOCYTE | INCORRECT; | % SEE MANUAL | | | | % | | COUNT | | | + + + + + + | MONOCYTE % | 6. | % | | | + + + + + + | MONOCYTE % | INCORRECT; | % SEE MANUAL | | | | | | COUNT | | | + + + + + + | EOS % | 3. | % | | | + + + + + + | EOS % | INCORRECT; | % SEE MANUAL | | | | | | COUNT | | | + + + + + + | BASO % | 0. | % | | | + + + + + + | BASO % | INCORRECT; | % SEE MANUAL | | | | | | COUNT | | | + + + + + + | NEUTROPHIL | 6.8 | K/CU MM | | | | # | | | | | + + + + + + | NEUTROPHIL | INCORRECT; | K/CU MM SEE | | | | # | | MANUAL COUNT | | | + + + + + + | LYMPHOCYTE | 7. | K/CU MM | | | | # | | | | | + + + + + + | LYMPHOCYTE | INCORRECT; | K/CU MM SEE | | | | # | | MANUAL COUNT | | | + + + + + + | LYMPHOCYTES | 63. (H) | % | | | + + + + + + | MONOCYTE # | 0.9 | K/CU MM | | | + + + + + + | MONOCYTE # | INCORRECT; | K/CU MM SEE | | | | | | MANUAL COUNT | | | + + + + + + | EOS # | 0.4 | K/CU MM | | | + + + + + + | EOS # | INCORRECT; | K/CU MM SEE | | | | | | MANUAL COUNT | | | + + + + + + | BASO # | 0. | K/CU MM | | | + + + + + + | BASO # | INCORRECT; | K/CU MM SEE | | | | | | MANUAL COUNT | | | + + + + + + | RBC FLAG | | K/CU MM | | | + + + + + + | DIFFERENTIA | 100. | Cells Counted | | | | L, FINAL | | | | | + + + + + + | SEGMENTED | 28. (L) | % | | | | NEUTROPHIL | | | | | + + + + + + | EOSINOPHILS | 5. | % | | | + + + + + + | MONOCYTES | 4. | % | | | + + + + + + | PLATELET | NORMAL | % | | | | ESTIMATE | | | | | + + + + + + | RBC | NORMAL | % | | | | MORPHOLOGY | | | | | + + + + + + + + | Specimen | + + | | + + + + + + + | Performing | Address | City/State/Zipcode | Phone Number | | Organization | | | | + + + + + | [facility] | [address] | [place] [address] | | | PATHOLOGY | [address] | | | + + + + + CBC TESTS 2 (04/28/1998 2:00 PM PST) + + + + + + | Component | Value | Ref Range | Performed | Pathologist | | | | | At | Signature | + + + + + + | WHITE CELL | 15.1 | K/CU MM | | | | COUNT | | | | | + + + + + + | RED CELL | 3.92 | M/CU MM | | | | COUNT | | | | | + + + + + + | HEMOGLOBIN | 11.7 | GM/DL | | | + + + + + + | HEMATOCRIT | 33.6 (L) | % | | | + + + + + + | MCV | 85.8 | [place] | | | + + + + + + | MCH | 29.9 | PG | | | + + + + + + | MCHC | 34.8 (H) | GM/DL | | | + + + + + + | RDW | 12.5 | % | | | + + + + + + | PLATELET | 444. | K/CU MM | | | | COUNT | | | | | + + + + + + | MPV | 8.2 | [place] | | | + + + + + + | NEUTROPHIL | 45. | % | | | | % | | | | | + + + + + + | NEUTROPHIL | PRELIMINARY DIFF, FINAL | % | | | | % | TO FOLLOW | | | | + + + + + + | LYMPHOCYTE | 46. (L) | % | | | | % | | | | | + + + + + + | MONOCYTE % | 6. | % | | | + + + + + + | EOS % | 3. | % | | | + + + + + + | BASO % | 0. | % | | | + + + + + + | NEUTROPHIL | 6.8 | K/CU MM | | | | # | | | | | + + + + + + | LYMPHOCYTE | 7. | K/CU MM | | | | # | | | | | + + + + + + | MONOCYTE # | 0.9 | K/CU MM | | | + + + + + + | EOS # | 0.4 | K/CU MM | | | + + + + + + | BASO # | 0. | K/CU MM | | | + + + + + + + + | Specimen | + + | | + + + + + + + | Performing | Address | City/State/Zipcode | Phone Number | | Organization | | | | + + + + + | [facility] | [address] | [place] [address] | | | PATHOLOGY | [address] | | | + + + + + documented in this encounter Visit Diagnoses Not on filedocumented in this encounter"
--- OUTSIDE RECORDS SUMMARY | ~2019-03-06 | XMS | Encounter Summary ---
Demographics + + + | Address | [address] | | | [place] [address] | + + + | Home Phone | | + + + | Preferred Language | Unknown | + + + | Marital Status | Single | + + + | Holiness Affiliation | CHR | + + + [...] [place] | | | | | [address] | | + + + + + | Tommy Falcon | ECON | [address] | | | | | [place] | | | | | [address] | | + + + + + Care Team Providers + +------+ + | Care Hotel Maintenance Worker Name | Role | Phone | + +------+ + | Jarret Griffith DO | PCP | | + +------+ + Encounter Details +--------+---------+ + + + | Date | Type | Department | Care Team | Description | +--------+---------+ + + + | 04/21/ | Office | [facility] | Bryan Link MD [address] | 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
--- OUTSIDE RECORDS SUMMARY | ~2019-03-06 | XMS | Encounter Summary ---
Demographics + + + | Address | [address] | | | [place] [address] | + + + | Home Phone | | + + + | Preferred Language | Unknown | + + + | Marital Status | Single | + + + | Yazidism Affiliation | CHR | + + + [...] [place], [place] | | | | | [address] | | + + + + + | Tommy Falcon | ECON | [address] | | | | | [place], [place] | | | | | [address] | | + + + + + Care Team Providers + +------+ + | Care Zipper Measurer Name | Role | Phone | + [...] | Transcriptions | + + | Interface, U.[place]. Senator In - 03/09/2006 1:11 AM PDT | | [address] | | [place], [place] [address] | | [facility] Healthcare[facility]ATION RECORDMed Rec No.: | | [id number] Date: 12/14/2000Name: Ramiro Falcon SURGEON: | | Faisal Turcios M.D., Ph.D.MOBILE PARAMEDICAL EXAMINER: | | Charlie Greenberg M.D.PREOPERATIVE DIAGNOSES:1) Glaucoma, [...] Acevedo | | Anabelle Turcios, Ph.D.JY:x63D: 12/15/2000T: 12/18/[id number]: | |point, the parents were then consented [...] | | | | | | | |[id number] | | | |CC: | + + documented in this encounter Visit Diagnoses Not on filedocumented in this encounter"
--- OUTSIDE RECORDS SUMMARY | ~2019-03-06 | XMS | Encounter Summary ---
Demographics + + + | Address | [address] | | | [place] [address] | + + + | Home Phone | | + + + | Preferred Language | Unknown | + + + | Marital Status | Single | + + + | Lutheran Affiliation | CHR | + + + | Race | White | + + + | Ethnic Group | Not or | + + + Author + + + | Author | [facility] | + + + | Organization | [facility] | + + + | Address | Unknown | + + + | Phone | Unavailable | + + + Support + + + + + | Name | Relationship | Address | Phone | + + + + + | Gilbert Falcon | ANGELES | [address] | | | | | [place] | | | | | [address] | | + + + + + | Tommy Falcon | ECON | [address] | | | | | [place] | | | | | [address] | | + + + + + Care Team Providers + +------+ + | Care Smash Piecer Name | Role | Phone | + +------+ + | Jarret Griffith DO | PCP | | + +------+ + Encounter Details +--------+ + + + + | Date | Type | Department | Care Team | Description | +--------+ + + + + | 01/15/ | Document-Sc | UNKNOWN DEPARTMENT | Unknown . | | | 2015 | anned | [address] [facility] | | | | | | [address] | | | | | | [place], [place] | | | | | | [address] | | | +--------+ + + + [...]
--- OUTSIDE RECORDS SUMMARY | ~2019-03-06 | XMS | Encounter Summary ---
Demographics + + + | Address | [address] | | | [place] [address] | + + + | Home Phone | | + + + | Preferred Language | Unknown | + + + | Marital Status | Single | + + + | Buddhism Affiliation | CHR | + + + | Race | White | + + + | Ethnic Group | Not or | + + + Author + + + | Author | [facility] | + + + | Organization | [facility] | + + + | Address | Unknown | + + + | Phone | Unavailable | + + + Support + + + + + | Name | Relationship | Address | Phone | + + + + + | Gilbert Falcon | ANGELES | [address] | | | | | [place] | | | | | [address] | | + + + + + | Tommy Falcon | ECON | [address] | | | | | [place] | | | | | [address] | | + + + + + Care Team Providers + +------+ + | Care System Admin Name | Role | Phone | + +------+ + PCP | Unavailable | + +------+ + Encounter Details +--------+ + + + + | Date | Type | Department | Care Team | Description | +--------+ + + + + | 04/28/ | Office | [facility] | Note, [...] as of this encounter Progress Notes Interface, Communications Assistant In - 05/26/2006 5:04 AM PST04/27/98 - 04/28/98Gestational Age: 2 4 weeks TYPE OF STUDY: [employer] sleep study with heart rate, nasal thermistor, thoracic impedance, and oxygen saturation. PERFORMED BY: Infant Monitoring Services. REFERRED BY: [facility] Staff. LOCATION: [facility]. INDICATION: Infant admitted with apnea, being evaluated for reflux. This study is being done simultaneously with a pH study to be read by Dr. Mele Milton. COMMENTS AND INTERPRETATION: This study is technically adequate. There are no alarms reported during the course of the recording except for a single low heart rate alarm occurring at 1710 hours. This event is a transient episode of bradycardia, not associated with any significant apnea or desaturation. On the diary, there are multiple times when the parents reported episodes of coughing. During these times, there are no significant changes in heart rate or oxygen saturation. There are also no associated episodes of apnea at this time. The rest of the sleep study shows no significant apneas greater than 20 seconds. Mina apneas are not associated with any significant changes in heart rate or oxygen saturation. RECOMMENDATIONS: This study fails to document any significant events occurring. Kar Kennedy M.D. Division Chair, Pediatrics Director, Monitoring Services Tomás d ocumented in this encounter Plan of Treatment Not on filedocumented as of this encounter Visit Diagnoses Not on filedocumented in this encounter"
--- OUTSIDE RECORDS SUMMARY | ~2019-03-06 | XMS | Encounter Summary ---
Demographics + + + | Address | [address] | | | [place] [address] | + + + | Home Phone [...] [place] | | | | | [address] | | + + + + + | Tommy Falcon | ECON | [address] | | | | | [place] | | | | | [address] | | + + + + + Care Team Providers + +------+ + | Care Computer Graphic Designer Name | Role | Phone | + +------+ + PCP | Unavailable | + +------+ + Encounter Details +--------+ + + + + | Date | Type | Department | Care Team | Description | +--------+ + + + + | 09/09/ | Office | [facility] | Note, [...] as of this encounter Progress Notes Interface, Public Health Clinical Nurse Specialist In - 05/12/2006 3:11 AM PSTCLINIC DATE: 09/09/1998 [facility]ED[facility]ATRIC GASTROENTEROLOGY CLINIC Weight is 7.35 kilograms which is less than the 5th percentile but it represents a weight gain of 1.3 kilograms in approximately three months. Height is 67.4cm which is also less than the 5th percentile. Head circumference if 42.5cm which is also less than 5th percentile. Weight for height is about the 25th percentile. SUBJECTIVE: Karlo is a 16 month old boy who was a 24 week premature with functional gastroesophageal reflux that has since resolved. His mother has stopped the Prilosec for two weeks and he has not had any emesis or irritability with feedings. He is eating well, gaining weight well and his mother has no concerns at this time. Karlo is taking Ensure but is also taking a wide range of table foods. He reportedly can consume an entire sandwich by himself. He reportedly eats more than his 3 year old brother. He has had no emesis and no irritability with feedings. He is sitting on his own and is beginning to walk. He says da-da and ma-ma. 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 PHYSICAL EXAMINATION: In general a small proportionate 16 month old white male toddler in no apparent distress. He is very active and playful. Head, ears, eyes, nose and throat are atraumatic, normocephalic. Lungs are clear to auscultation. Heart is regular rate and rhythm with murmur. Abdomen is soft, nontender, no hepatosplenomegaly or other masses palpated. ASSESSMENT: A 16 month old toddler, ex-24 week premature , with moderate developmental delay, left eye blindness and functional gastroesophageal reflux, resolved. RECOMMENDATIONS: 1. Discontinue Prilosec. 2. Continue advancing his diet. 3. No scheduled followup at this time. However, I'll be very happy to re-evaluate Karlo should further questions or concerns arise. I want to thank you for referring Karlo Falcon to me. Please feel free to contact me with any questions or concerns. Mele Milton M.D. WANDER/jenny C: 09/23/1998 ds cc POLO HENNESSY MD [address] [address] [email or web address] signed by Interface, Public Health Clinical Nurse Specialist In at 05/12/2006 3:11 AM PST documented in this encounter Plan of Treatment Not on filedocumented as of this encounter Visit Diagnoses Not on filedocumented in this encounter"
--- OUTSIDE RECORDS SUMMARY | ~2019-03-06 | XMS | Encounter Summary ---
Demographics + + + | Address | [address] | | | [place] [address] | + + + | Home Phone | | + + + | Preferred Language | Unknown | + + + | Marital Status | Single | + + + | Temple Affiliation | CHR | + + + | Race | White | + + + | Ethnic Group | Not or | + + + Author + + + | Author | [facility] | + + + | Organization | [facility] | + + + | Address | Unknown | + + + | Phone | Unavailable | + + + Support + + + + + | Name | Relationship | Address | Phone | + + + + + | Gilbert Falcon | ANGELES | [address] | | | | | [place] | | | | | [address] | | + + + + + | Tommy Falcon | ECON | [address] | | | | | [place] | | | | | [address] | | + + + + + Care Team Providers + +------+ + | Care Rubber Tire And Tubes Supervisor Name | Role | Phone | [...] as of this encounter Progress Notes Interface, Program Coordinator For Residence Life In - 03/25/2006 5:12 AM PSTCLINIC DATE: 05/30/2000 PEDIATRIC GASTROENTEROLOGY CLINIC Today, I received a phone call from Dr. Chuck Gaitan who updated me on the patient. His parents have just moved to [place], [place], and will be staying there for [...] November 1999. The family's new address is [address] [place] [address], [address], [place] [address]. I wrote a prescription for omeprazole 10 mg twice a day to be given through the gastrostomy tube for 1 month with several refills. Mele Milton M.D. Pediatric Gastroenterology / [id number] / [id number] / [id number] / [id number] signed by Interface, Program Coordinator For Residence Life In at 03/25/2006 5:12 AM PSTdocume nted in this encounter Plan of Treatment Not on filedocumented as of this encounter Visit Diagnoses Not on filedocumented in this encounter"
--- OUTSIDE RECORDS SUMMARY | ~2019-03-06 | XMS | Encounter Summary ---
Demographics + + + | Address | [address] | | | [place] [address] | + + + | Home Phone | | + + + | Preferred Language | Unknown | + + + | Marital Status | Single | + + + | Episcopalian Affiliation | CHR | + + + | Race | White | + + + | Ethnic Group | Not or | + + + Author + + + | Author | [facility] | + + + | Organization | [facility] | + + + | Address | Unknown | + + + | Phone | Unavailable | + + + Support + + + + + | Name | Relationship | Address | Phone | + + + + + | Gilbert Falcon | ANGELES | [address] | | | | | [place] | | | | | [address] | | + + + + + | Tommy Falcon | ECON | [address] | | | | | [place] | | | | | [address] | | + + + + + Care Team Providers + +------+ + | Care Book Editor Name | Role | Phone | + [...] | [facility] | Bryan Link MD 0565 | Blind left eye | | 2013 | Visit | [place] | [address] | (Primary Dx) | | | | Oculoplastics at | [place], [place] | | | | | [facility] | [address] | | | | | [address] | [phone] | | | | | Mailcode: [facility] | | | | | | [place], [place] | | | | | | [address] | | | | | | [phone] | | | +--------+---------+ + + + [...] high tolerance. She is also concerned regarding long term care pharmacist prognosis and need for enucleation for future [...] | + +--------+ + + + | [facility] EXTERNAL [facility]OTOS | Routin | 11/27/2013 | [...]
--- OUTSIDE RECORDS SUMMARY | ~2019-03-06 | XMS | Encounter Summary ---
Demographics + + + | Address | [address] | | | [place] [address] | + + + | Home Phone | | + + + | Preferred Language | Unknown | + + + | Marital Status | Single | + + + | Anabaptist Affiliation | CHR | + + + | Race | White | + + + | Ethnic Group | Not or | + + + Author + + + | Author | [facility] | + + + | Organization | [facility] | + + + | Address | Unknown | + + + | Phone | Unavailable | + + + Support + + + + + | Name | Relationship | Address | Phone | + + + + + | Gilbert Falcon | ANGELES | [address] | | | | | [place] | | | | | [address] | | + + + + + | Tommy Falcon | ECON | [address] | | | | | [place] | | | | | [address] | | + + + + + Care Team Providers + +------+ + | Care Miller Supervisor Name | Role | Phone | [...] as of this encounter Progress Notes Interface, Manager Of Revenue In - 05/22/2006 3:18 AM PSTCLINIC DATE: [...] Milton M.D. [id number] cc: POLO HENNESSY MD [facility] [id number] signed by Interface, Manager Of Revenue In at 05/22/2006 3:18 AM PSTdocumented in this encounter Plan of Treatment Not on filedocumented as of this encounter Visit Diagnoses Not on filedocumented in this encounter"
--- OUTSIDE RECORDS SUMMARY | ~2019-03-06 | XMS | Encounter Summary ---
Demographics + + + | Address | [address] | | | [place] [address] | + + + | Home Phone | | + + + | Preferred Language | Unknown | + + + | Marital Status | Single | + + + | Orthodox Affiliation | CHR | + + + [...] [place] | | | | | [address] | | + + + + + | Tommy Falcon | ECON | [address] | | | | | [place] | | | | | [address] | | + + + + + Care Team Providers + +------+ + | Care Supervisor Sanding Name | Role | Phone | + +------+ + | Jarret Griffith DO | PCP | | + +------+ + Encounter Details +--------+---------+ + + + | Date | Type | Department | Care Team | Description | +--------+---------+ + + + | 03/04/ | Office | [facility] | Bryan Link MD 3[address] | Acquired absence of | | 2014 | Visit | [place] | [address] | organ, eye (Primary | | | | Oculoplastics at | [place], [place] | Dx) | | | | [facility] | [address] | | | | | [address] | [phone] | | | | | Mailcode: [facility] | | | | | | [place], [place] | | | | | | [address] | | | | | | [phone] | | | +--------+---------+ + + + [...] as of this encounter Progress Notes Deborah Vargas - 03/04/2015 11:25 AM PDTFaxed orders to [facility] for [facility] ocular pros thesis left eye with op note Bryan Mcknight MD - 03/04/2015 10:18 AM PDTFormatting of this note might be different from tia kelley original. Karlo Falcon is a 19 y.o. male Operation Performed: 02/17/15 1. 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 2. Placement of pediatric epidural retrobulbar catheter, left side. At last visit: 02/18/15 Imp: 1. Doing well s/p left enucleation. Plan: 1. Reviewed PO instructions. 2. Follow up 2 weeks or PRN. Doing well. No pain. Happy with outcome so far. Lids: mild erythema of left upper eyelid where suture tarsorrhaphies were located. Iris conformer fits well. Socket: healing well, polysor sutures visible, no exposure. Good fornices and volume. 1. Acquired absence of organ, eye Imp: 1. Healing well after left enucleation with implant placement. Plan: 1. Will coordinate next follow up with prosthetic appointment with [facility] given distance they have to travel. Bryan Link MD, FACS Professor Ophthalmic Facial Plastic Surgery Departments of Ophthalmology and Otolaryngology & Head/Neck Surgery FAX: documented in this encounter Plan of Treatment Not on filedocumented as of this encounter Visit Diagnoses + + | Diagnosis | + + | Acquired absence of organ, eye - Primary | + + documented in this encounter"
--- OUTSIDE RECORDS SUMMARY | ~2019-03-06 | XMS | Encounter Summary ---
Demographics + + + | Address | [address] | | | [place] [address] | + + + | Home Phone | | + + + | Preferred Language | Unknown | + + + | Marital Status | Single | + + + | Mu-Ism Affiliation | CHR | + + + [...] [place] | | | | | [address] | | + + + + + | Tommy Falcon | ECON | [address] | | | | | [place] | | | | | [address] | | + + + + + Care Team Providers + +------+ + | Care Assessment Nurse Name | Role | Phone | + [...] of | | 2014 | Visit | [place] | [address] | organ, eye (Primary | | | | Oculoplastics at | [place], [place] | Dx) | | | | [facility] | [address] | | | | | [address] | [phone] | | | | | Mailcode: [facility] | | | | | | [place], [place] | | | | | | [address] | | | | | | [phone] | | | +--------+---------+ + + + [...]
--- OUTSIDE RECORDS SUMMARY | ~2019-03-06 | XMS | Encounter Summary ---
Demographics + + + | Address | [address] | | | [place] [address] | + + + | Home Phone | | + + + | Preferred Language | Unknown | + + + | Marital Status | Single | + + + | Quaker Affiliation | CHR | + + + | Race | White | + + + | Ethnic Group | Not or | + + + Author + + + | Author | [facility] | + + + | Organization | [facility] | + + + | Address | Unknown | + + + | Phone | Unavailable | + + + Support + + + + + | Name | Relationship | Address | Phone | + + + + + | Gilbert Falcon | ANGELES | [address] | | | | | [place] | | | | | [address] | | + + + + + | Tommy Falcon | ECON | [address] | | | | | [place] | | | | | [address] | | + + + + + Care Team Providers + +------+ + | Care Hydraulic Rockbreaker Operator Name | Role | Phone | + +------+ + | Jarret Griffith DO | PCP | | + +------+ + Reason for Visit + + + | Reason | Comments | + + + | Referral to social | | | worker | | + + + Encounter Details +--------+ + + + + | Date | Type | Department | Care Team | Description | +--------+ + + + + | 02/16/ | Telephone | [facility] | Gabby Abarca, | Referral to social | | 2014 | | [facility] [address] [place] [address] | [place], [place] | worker | | | | [address] | [address] | | | | | Mailcode: [address] | | | | | | [place], [place] | | | | | | [address] | | | | | | [phone] | | | +--------+ + + + [...]
--- OUTSIDE RECORDS SUMMARY | ~2019-03-06 | XMS | Encounter Summary ---
Demographics + + + | Address | [address] | | | [place] [address] | + + + | Home Phone | | + + + | Preferred Language | Unknown | + + + | Marital Status | Single | + + + | Christianity Affiliation | CHR | + + + | Race | White | + + + | Ethnic Group | Not or | + + + Author + + + | Author | [facility] | + + + | Organization | [facility] | + + + | Address | Unknown | + + + | Phone | Unavailable | + + + Support + + + + + | Name | Relationship | Address | Phone | + + + + + | Gilbert Falcon | ANGELES | [address] | | | | | [place] | | | | | [address] | | + + + + + | Tommy Falcon | ECON | [address] | | | | | [place] | | | | | [address] | | + + + + + Care Team Providers + +------+ + | Care Photoengraving Etcher Name | Role | Phone | + [...] as of this encounter Progress Notes Interface, Online Facilitator In - 01/06/2006 3:05 AM PDTCLINIC DATE: 01/23/2002 CLINIC NAME: [facility] DISCIPLINE: PEDIATRIC ORTHOPEDICS Karlo Falcon [...] Gaudencio Krueger M.D. Department of Orthopedics MR/[id number] [id number] cc: Dr. Joey [place], [place] Catarina Armenta, PSeleneT. [address] Elena [place], [place] Gypsy Murrell 3: 05 AM PDTdocumented in this encounter Plan of Treatment Not on filedocumented as of this encounter Visit Diagnoses Not on filedocumented in this encounter"
--- OUTSIDE RECORDS SUMMARY | ~2019-03-06 | XMS | Encounter Summary ---
Demographics + + + | Address | [address] | | | [place] [address] | + + + | Home Phone [...] Author + + + | Author | [facility] | + + + | Organization | [facility] | + + + | Address | Unknown | + + + | Phone | Unavailable | + + + Support + + + + + | Name | Relationship | Address | Phone | + + + + + | Gilbert Falcon | ANGELES | [address] | | | | | [place] | | | | | [address] | | + + + + + | Tommy Falcon | ECON | [address] | | | | | [place] | | | | | [address] | | + + + + + Care Team Providers + +------+ + | Care Hardboard Supervisor Name | Role | Phone | [...] [address] | | | | | [facility], | [place], [place] | | | | | [place] [address] | [address] | | | | | | [phone] | | | | | | | [...]
--- OUTSIDE RECORDS SUMMARY | ~2019-03-06 | XMS | Encounter Summary ---
Demographics + + + | Address | [address] | | | [place] [address] | + + + | Home Phone | | + + + | Preferred Language | Unknown | + + + | Marital Status | Single | + + + | Jehovah'S Witness Affiliation | CHR | + + + [...] | Gilbert Falcon | ANGELES | [address] | | | | | [place] | | | | | [address] | | + + + + + | Tommy Falcon | ECON | [address] | | | | | [place] | | | | | [address] | | + + + + + Care Team Providers + +------+ + | Care Stereotype Finisher Name | Role | Phone | + +------+ + | Jarret Griffith DO | PCP | | + +------+ + Encounter Details +--------+ + + + + | Date | Type | Department | Care Team | Description | +--------+ + + + + | 04/13/ | Document-Sc | UNKNOWN DEPARTMENT | Unknown . | | | 2015 | anned | [address] [facility] | | | | | | [address] | | | | | | [place], [place] | | | | | | [address] | | | +--------+ + + + [...]
--- OUTSIDE RECORDS SUMMARY | ~2019-03-06 | XMS | Encounter Summary ---
Demographics + + + | Address | [address] | | | [place] [address] | + + + | Home Phone | | + + + | Preferred Language | Unknown | + + + | Marital Status | Single | + + + | Yazidi Affiliation | CHR | + + + | Race | White | + + + | Ethnic Group | Not or | + + + Author + + + | Author | [facility] | + + + | Organization | [facility] | + + + | Address | Unknown | + + + | Phone | Unavailable | + + + Support + + + + + | Name | Relationship | Address | Phone | + + + + + | Gilbert Falcon | ANGELES | [address] | | | | | [place] | | | | | [address] | | + + + + + | Tommy Falcon | ECON | [address] | | | | | [place] | | | | | [address] | | + + + + + Care Team Providers + +------+ + | Care Sports Lawyer Name | Role | Phone | + +------+ + | Jarret Griffith DO | PCP | | + +------+ + Encounter Details +--------+ + + + + | Date | Type | Department | Care Team | Description | +--------+ + + + + | 01/15/ | Document-Sc | UNKNOWN DEPARTMENT | Unknown . | | | 2015 | anned | [address] [facility] | | | | | | [address] | | | | | | [place], [place] | | | | | | [address] | | | +--------+ + + + [...]
--- OUTSIDE RECORDS SUMMARY | ~2019-03-06 | XMS | Encounter Summary ---
Demographics + + + | Address | [address] | | | [place] [address] | + + + | Home Phone | | + + + | Preferred Language | Unknown | + + + | Marital Status | Single | + + + | Taoism Affiliation | CHR | + + + | Race | White | + + + | Ethnic Group | Not or | + + + Author + + + | Author | [facility] | + + + | Organization | [facility] | + + + | Address | Unknown | + + + | Phone | Unavailable | + + + Support + + + + + | Name | Relationship | Address | Phone | + + + + + | Gilbert Falcon | ANGELES | [address] | | | | | [place] | | | | | [address] | | + + + + + | Tommy Falcon | ECON | [address] | | | | | [place] | | | | | [address] | | + + + + + Care Team Providers + +------+ + | Care Manufacturing Engineering Professor Name | Role | Phone | + [...] +--------+--------+ + + + + Encounter Details +--------+---------+ + + + | Date | Type | Department | Care Team | Description | +--------+---------+ + + + | 02/17/ | Surgery | [facility] IN[facility] OP LOC | Bryan Link MD 1445 | LEFT ENUCLEATION | | 2014 | | [address] | [address] | WITH 20 MM MEDPOR | | | | [address] | [place], [place] | IMPLANT Specimen: A) | | | | [facility], | [address] | Left globe | | | | [place] [address] | [phone] | | | | | | | | +--------+---------+ + + + [...] weekends and holidays, call and ask the tester operator to page the Eye Doctor congregational care pastor. ? Return appointment date: ? Time: documented [...] sent to same-day surgery in good condition.RAFAEL Blanchard/MODLDD: | | 02/17/2015 14:19:02DT: 02/17/2015 14:37:18Job #: [id number]: Monae Fitzgerald Sr, | | Jen Griffith DO | |OpSite and then 3 mL of 0.5% plain Marcaine were administered for postoperative pain contro l. An antibiotic pressure patch was placed over the left eye socket. The patient was awake jackson from anesthesia and sent to same-day surgery in good condition. | | | | | | | |Bryan Link MD | |GIOVANY/CHERYLE | | | | | | /[id number] | | | |CC: Monae Fitzgerald Sr, [...] + + | [facility] | [address] | [place] [address] | | | INSTITUTE | [address]. | | | + + + + + documented in this encounter Visit Diagnoses + + | Diagnosis | + + | Blind hypotensive eye, left | + + documented in this encounter Administered Medications + +--------+ +------+------+------+ | Medication Order | MAR | Action | Dose | Rate | Site | | | Action | Date | | | | + +--------+ +------+------+------+ | bupivacaine (PF) | Given | 02/18/20 | 3 mL | | | | (MARCAINE,SENSORCAINE-MPF) | | 15 2:05 | | | | | injection INTRAPROCEDURE PRN, | | PM PDT | | | | | Starting 02/17/15 at 1405, | | | | | | | Until 02/17/15 at 1420 | | | | | | + +--------+ +------+------+------+ +---+---+ | | | +---+---+ + +-------+ +-------+---+---+ | gentamicin (GARAMYCIN) | Given | 02/18/20 | 40 mg | | | | injection INTRAPROCEDURE PRN, | | 15 2:06 | | | | | Starting 02/17/15 at 1406, | | PM PDT | | | | | Until 02/17/15 at 1420 | | | | | | + +-------+ +-------+---+---+ +---+---+ | | | +---+---+ + +-------+ +--------+---+---+ | lactated ringers irrigation | Given | 02/18/20 | 100 mL | | | | INTRAPROCEDURE PRN, Starting Tue | | 15 2:09 | | | | | 02/17/15 at 1409, Until Tue | | PM PDT | | | | | 02/17/15 at 1420 | | | | | | + +-------+ +--------+---+---+ +---+---+ | | | +---+---+ + + [...] +---+---+ | | | +---+---+ + +-------+ +---------+---+---+ | | Given | 02/18/20 | 1 strip | | | | jvsepwob-eaihwshle-nnihgrlkaviwi | | 15 2:09 | | | | | (MAXITROL) 3.5 mg/g-10,000 | | PM PDT | | | | | unit/g-0.1 % ophthalmic ointment | | | | | | | INTRAPROCEDURE PRN, Starting Tue | | | | | | | 02/17/15 at 1409, Until Tue | | | | | | | 02/17/15 at 1420 | | | | | | + +-------+ +---------+---+---+ +---+---+ | | | +---+---+ + +-------+ +------+---+---+ | Oculoplastics Local with | Given | 02/18/20 | 5 mL | | | | hyaluronidase: lidocaine w/ EPI | | 15 2:09 | | | | | 1%-1:604374 - bupivacaine 0.5% | | PM PDT | | | | | (1:1) - hyaluronidase 150 | | | | | | | units/mL 1 mL INTRAPROCEDURE | | | | | | | PRN, Starting Mon02/17/15 at | | | | | | | 1409, Until Mon02/17/15 at 1420 | | | | | | + +-------+ +------+---+---+ +---+---+ | | | +---+---+ + +-------+ +---------+---+---+ | proparacaine (OPHTHAINE) 0.5 % | Given | 02/18/20 | 2 drops | | | | ophthalmic drops INTRAPROCEDURE | | 15 2:09 | | | | | PRN, Starting Mon02/17/15 at | | PM PDT | | | | | 1409, Until Mon15 at 1420 | | | | | | + +-------+ +---------+---+---+ +---+---+ | | | +---+---+ documented in this encounter
--- OUTSIDE RECORDS SUMMARY | ~2019-03-06 | XMS | Encounter Summary ---
Demographics + + + | Address | [address] | | | [place] [address] | + + + | Home Phone | | + + + | Preferred Language | Unknown | + + + | Marital Status | Single | + + + | Orthodoxy Affiliation | CHR | + + + [...] [place] | | | | | [address] | | + + + + + | Tommy Falcon | ECON | [address] | | | | | [place] | | | | | [address] | | + + + + + Care Team Providers + +------+ + | Care Two Way Radio Installer Name | Role | Phone | + [...] INTRA OP LOC | Bryan Link MD [address] | LEFT ENUCLEATION | | 2014 | | [address] | [address] | WITH 20 MM MEDPOR | | | | [address] | [place], [place] | IMPLANT Specimen: A) | | | | [facility], | [address] | Left globe | | | | [place] [address] | [phone] | | | | | | | [...] weekends and holidays, call and ask the lap cutter truer operator to page the Eye Doctor insulation sprayer. ? Return appointment date: ? Time: documented [...] | | 02/17/2015 14:19:02DT: 02/17/2015 14:37:18Job #: [id number]: Monae Fitzgerald Sr, | | Jen Griffith [...] |GIOVANY/CHERYLE | | | | | | /[id number] | | | |CC: Monae Fitzgerald Sr, [...] + + | [facility] | [address] | [place] [address] | | | INSTITUTE | [place]. | [...] | 1 strip | | | | cwybnumt-vhxvnaryq-gemuyvohvsyyg | | 15 2:09 | | | [...] 15 2:09 | | | | | 1%-1:[id number] - bupivacaine 0.5% | | PM PDT [...]
--- OUTSIDE RECORDS SUMMARY | ~2019-03-06 | XMS | Encounter Summary ---
Demographics + + + | Address | [address] | | | [place] [address] | + + + | Home Phone | | + + + | Preferred Language | Unknown | + + + | Marital Status | Single | + + + | Caodaism Affiliation | CHR | + + + [...] [place] | | | | | [address] | | + + + + + | Tommy Falcon | ECON | [address] | | | | | [place] | | | | | [address] | | + + + + + Care Team Providers + +------+ + | Care Water Tender Name | Role | Phone | [...] [place] | | | | | | [address] | | | | | | [phone] | | | +--------+ + + + [...] | + + + + + | [facility] | [address] | [place] [address] | | | PATHOLOGY | [address] [...] | + + + + + | [facility] | [address] | [place] [address] | | | PATHOLOGY | [address] | | | + + + + + documented in this encounter Visit Diagnoses Not on filedocumented in this encounter"
--- OUTSIDE RECORDS SUMMARY | ~2019-03-06 | XMS | Encounter Summary ---
Demographics + + + | Address | [address] | | | [place] [address] | + + + | Home Phone | | + + + | Preferred Language | Unknown | + + + | Marital Status | Single | + + + | Yazdanism Affiliation | CHR | + + + | Race | White | + + + | Ethnic Group | Not or | + + + Author + + + | Author | [facility] | + + + | Organization | [facility] | + + + | Address | Unknown | + + + | Phone | Unavailable | + + + Support + + + + + | Name | Relationship | Address | Phone | + + + + + | Gilbert Falcon | ANGELES | [address] | | | | | [place] | | | | | [address] | | + + + + + | Tommy Falcon | ECON | [address] | | | | | [place] | | | | | [address] | | + + + + + Care Team Providers + +------+ + | Care Process Plant Operator Name | Role | Phone | + +------+ + | Jarret Griffith DO | PCP | | + +------+ + Encounter Details +--------+ + + + + | Date | Type | Department | Care Team | Description | +--------+ + + + + | 01/13/ | Documentati | [facility] | Bryan Link MD [address] | | | 2015 | on | [place] | [address] | | | | | Oculoplastics at | [place], [place] | | | | | [address] | [address] | | | | | [address] | [phone] | | | | | Mailcode: [facility] | | | | | | [place], [place] | | | | | | [address] | | | | | | [phone] | | | +--------+ + + + [...]
--- OUTSIDE RECORDS SUMMARY | ~2019-03-06 | XMS | Encounter Summary ---
Demographics + + + | Address | [address] | | | [place] [address] | + + + | Home Phone [...] + + + | Author | [facility] | + + + | Organization | [facility] | + + + | Address | Unknown | + + + | Phone | Unavailable | + + + Support + + + + + | Name | Relationship | Address | Phone | + + + + + | Gilbert Falcon | ANGELES | [address] | | | | | [place] | | | | | [address] | | + + + + + | Tommy Falcon | ECON | [address] | | | | | [place] | | | | | [address] | | + + + + + Care Team Providers + +------+ + | Care Restaurant Assistant Name | Role | Phone | + [...] as of this encounter Progress Notes Interface, Vest Backer In - 05/26/2006 5:04 AM PST04/27/98 - 04/28/98Gestational Age: 2 4 weeks TYPE OF STUDY: [employer] sleep study with heart rate, nasal thermistor, thoracic impedance, and oxygen saturation. PERFORMED BY: [facility]. REFERRED BY: [facility] Staff. LOCATION: [facility]. INDICATION: Infant admitted with apnea, being [...] no significant apneas greater than 20 seconds. [place] apneas are not associated with any significant changes in heart rate or oxygen saturation. RECOMMENDATIONS: This study fails to document any significant events occurring. Kar Kennedy M.D. Private Duty Nurse, Pediatrics Director, Monitoring Services Tomás d ocumented in this encounter Plan of Treatment Not on filedocumented as of this encounter Visit Diagnoses Not on filedocumented in this encounter"
--- OUTSIDE RECORDS SUMMARY | ~2019-03-06 | XMS | Encounter Summary ---
Demographics + + + | Address | [address] | | | [place] [address] | + + + | Home Phone | | + + + | Preferred Language | Unknown | + + + | Marital Status | Single | + + + | Shinto Affiliation | CHR | + + + | Race | White | + + + | Ethnic Group | Not or | + + + Author + + + | Author | [facility] | + + + | Organization | [facility] | + + + | Address | Unknown | + + + | Phone | Unavailable | + + + Support + + + + + | Name | Relationship | Address | Phone | + + + + + | Gilbert Falcon | ANGELES | [address] | | | | | [place] | | | | | [address] | | + + + + + | Tommy Falcon | ECON | [address] | | | | | [place] | | | | | [address] | | + + + + + Care Team Providers + +------+ + | Care Carbonation Equipment Tender Name | Role | Phone | [...] as of this encounter Progress Notes Interface, Erp Pm In - 05/12/2006 3:11 AM PSTCLINIC DATE: [...] C: 09/23/1998 ds cc POLO HENNESSY MD [address] [address] [id number] signed by Interface, Erp Pm In at 05/12/2006 3:11 AM PST documented in this encounter Plan of Treatment Not on filedocumented as of this encounter Visit Diagnoses Not on filedocumented in this encounter"
--- OUTSIDE RECORDS SUMMARY | ~2019-03-06 | XMS | Encounter Summary ---
Demographics + + + | Address | [address] | | | [place] [address] | + + + | Home Phone | | + + + | Preferred Language | Unknown | + + + | Marital Status | Single | + + + | Taoist Affiliation | CHR | + + + | Race | White | + + + | Ethnic Group | Not or | + + + Author + + + | Author | [facility] | + + + | Organization | [facility] | + + + | Address | Unknown | + + + | Phone | Unavailable | + + + Support + + + + + | Name | Relationship | Address | Phone | + + + + + | Gilbert Falcon | ANGELES | [address] | | | | | [place] | | | | | [address] | | + + + + + | Tommy Falcon | ECON | [address] | | | | | [place] | | | | | [address] | | + + + + + Care Team Providers + +------+ + | Care Corporate Librarian Name | Role | Phone | + [...] Retinal | | 2006 | Visit | [facility] at | [address] | [address], [address] | | | | [address] | [address] [place], | [address] (Primary | | | | [address] | [place] [address] | Dx) | | | | Mailcode: [address] | [phone] | | | | | [place], [place] | | | | | | [address] | | | | | | [phone] | | | +--------+---------+ + + + [...]
--- OUTSIDE RECORDS SUMMARY | ~2019-03-06 | XMS | Encounter Summary ---
Demographics + + + | Address | [address] | | | [place] [address] | + + + | Home Phone [...] + + + | Author | [facility] | + + + | Organization | [facility] | + + + | Address | Unknown | + + + | Phone | Unavailable | + + + Support + + + + + | Name | Relationship | Address | Phone | + + + + + | Gilbert Falcon | ANGELES | [address] | | | | | [place] | | | | | [address] | | + + + + + | Tommy Falcon | ECON | [address] | | | | | [place] | | | | | [address] | | + + + + + Care Team Providers + +------+ + | Care Political Cartoonist Name | Role | Phone | + [...] | | 2014 | | [facility] [address] [place] [address] | [place], [place] | worker | | | | [address] | [address] | | | | | Mailcode: [address] | | | | | | [place], [place] | | | | | | [address] | | | | | | [phone] | | | +--------+ + + + [...]
--- OUTSIDE RECORDS SUMMARY | ~2019-03-06 | XMS | Encounter Summary ---
Demographics + + + | Address | [address] | | | [place] [address] | + + + | Home Phone [...] + + + | Author | [facility] | + + + | Organization | [facility] | + + + | Address | Unknown | + + + | Phone | Unavailable | + + + Support + + + + + | Name | Relationship | Address | Phone | + + + + + | Gilbert Falcon | ANGELES | [address] | | | | | [place] | | | | | [address] | | + + + + + | Tommy Falcon | ECON | [address] | | | | | [place] | | | | | [address] | | + + + + + Care Team Providers + +------+ + | Care Operations Systems Specialist Name | Role | Phone | + +------+ + | Jarret Girffith DO | PCP | | + +------+ + Encounter Details +--------+ + + + + | Date | Type | Department | Care Team | Description | +--------+ + + + + | 10/01/ | Telephone | [facility] | Bryan Link MD [address] | | | 2015 | | [place] | [address] | | | | | Oculoplastics at | [place], [place] | | | | | [address] | [address] | | | | | [address] | [phone] | | | | | Mailcode: [facility] | | | | | | [place], [place] | | | | | | [address] | | | | | | [phone] | | | +--------+ + + + [...]
[~2019-03-06 06:47] MED LIST: CHERATUSSIN AC118 ML PO; IBUPROFEN400 MG PO
== END 2019-03-06 10:45 | disposition home or self-care (01) ==
LOC: ED 06:47
DX: G43.909 Migraine, unspecified, not intractable, without status migrainosus (principal)
CPT/HCPCS: 70450; 80053; 85025; 96374; 96375; 99284-25; J1200; J2765; J7030

== ENCOUNTER 2020-07-30 15:48 | Emergency (ER) | payer OTHER ==
[~2020-07-30] VITALS: Ht 167.6 cm; Wt 59.0 kg
== END 2020-07-30 20:52 | disposition home or self-care (01) ==
LOC: ED 15:48
DX: S80.02XA Contusion of left knee, initial encounter (principal); S80.01XA Contusion of right knee, initial encounter; V43.52XA Car driver injured in collision with other type car in traffic accident, initial encounter
CPT/HCPCS: 73560; 99284-25

== ENCOUNTER 2023-09-15 20:01 | Emergency (ER) | payer OTHER ==
[~2023-09-15] VITALS: Ht 167.6 cm; Wt 63.0 kg
[2023-09-15] MEDS ORDERED: TETRACAINE HCL 0.5% 4 ML BTL OS SCH (20:30)
[2023-09-15] MEDS ORDERED: BACITRACIN3.5 GM OS (21:24)
[2023-09-15 21:50] VITALS: BP 131/81
== END 2023-09-15 21:50 | disposition home or self-care (01) ==
LOC: ED 20:01
DX: H01.00B Unspecified blepharitis left eye, upper and lower eyelids (principal)
CPT/HCPCS: 99283